=== PATIENT | male | born 1980 | race Caucasian/White ===

== ENCOUNTER → 2020-03-03 09:24 | Outpatient (BNVA) | payer OTHER, SELFPAY | PROVIDERS: PCP Internal Medicine; Referring Provider Internal Medicine; Visit Provider Family Medicine Adult Medicine | DX: Z76.89 Persons encountering health services in other specified circumstances (principal) ==

== ENCOUNTER 2020-04-28 14:00 | Outpatient (REF) | payer OTHER, SELFPAY | END 2020-04-28 14:01 | disposition home or self-care (01) | LOC: HO.HMGCLDS 14:00 | PROVIDERS: PCP Internal Medicine; Visit Provider Internal Medicine | DX: Z20.828 Contact with and (suspected) exposure to other viral communicable diseases (principal) | CPT/HCPCS: C9803; U0003 ==

== ENCOUNTER → 2020-08-13 11:00 | Outpatient (BNVA) | payer OTHER, SELFPAY | PROVIDERS: PCP Internal Medicine; Visit Provider Family Medicine Adult Medicine ==

== ENCOUNTER 2020-08-19 17:48 | Emergency (ER) | payer OTHER, SELFPAY ==
--- NOTE | ~2020-08-19 | US_ITS ---
EXAMINATION: US SCROTUM CLINICAL INFORMATION: Right-sided pain.. COMPARISON: Scrotal ultrasound 07/18/2018 TECHNIQUE: A sonogram of the scrotum was performed assessing chávez-scale appearance and color Doppler flow. Spectral Doppler analysis of the arterial and venous flow were performed in the testes bilaterally. FINDINGS: RIGHT: Right testicle measures 3.6 x 1.6 x 2.3 cm, volume 6.8 mL. No focal testicular parenchymal lesions are visualized. Spectral Doppler analysis of the arterial and venous flow is normal in the right testis. Right epididymal head is normal in size. No right hydrocele or varicocele is seen. Right epididymal Doppler flow is normal. LEFT: Left testicle measures 3 x 1.7 x 2.5 cm, volume 6.5 mL. No focal testicular parenchymal lesions are visualized. Spectral Doppler analysis of the arterial and venous flow is normal in the left testis. Left epididymal head is normal in size. There is a small cyst in the head of the left epididymis. No left hydrocele. There is a small left-sided varicocele.. Left epididymal Doppler flow is normal. US/US scrotum IMPRESSION: 1. Normal ultrasound of the right and left testicle. No testicular torsion. 2. Small left-sided varicocele.
--- NOTE | ~2020-08-19 | US_ITS ---
EXAMINATION: US SCROTUM CLINICAL INFORMATION: Right-sided pain.. COMPARISON: Scrotal ultrasound 07/18/2018 TECHNIQUE: A sonogram of the scrotum was performed assessing chávez-scale appearance and color Doppler flow. Spectral Doppler analysis of the arterial and venous flow were performed in the testes bilaterally. FINDINGS: RIGHT: Right testicle measures 3.6 x 1.6 x 2.3 cm, volume 6.8 mL. No focal testicular parenchymal lesions are visualized. Spectral Doppler analysis of the arterial and venous flow is normal in the right testis. Right epididymal head is normal in size. No right hydrocele or varicocele is seen. Right epididymal Doppler flow is normal. LEFT: Left testicle measures 3 x 1.7 x 2.5 cm, volume 6.5 mL. No focal testicular parenchymal lesions are visualized. Spectral Doppler analysis of the arterial and venous flow is normal in the left testis. Left epididymal head is normal in size. There is a small cyst in the head of the left epididymis. No left hydrocele. There is a small left-sided varicocele.. Left epididymal Doppler flow is normal. US/US scrotum doppler IMPRESSION: 1. Normal ultrasound of the right and left testicle. No testicular torsion. 2. Small left-sided varicocele.
[2020-08-19 18:53] LABS: Basophils Percent Auto 0.4 % (0-2); Eosinophils Absolute Auto 0.2 X10*3/uL (0.0-0.4); Eosinophils Percent Auto 2.2 % (0-4); Hematocrit 45.7 % (42-52); Hemoglobin 15.7 g/dl (14.0-18.0); Imm Gran Abs Auto 0.02 X10*3/uL (0.00-0.03); Imm Gran Pct Auto 0.2 % (0.0-0.4); Lymphocytes Absolute Auto 2.8 X10*3/uL (1.2-4.9); Lymphocytes Percent Auto 30.8 % (20-40); MANUAL DIFF FLAG NO; Mean Corpuscular HGB Conc 34.4 g/dl (31.0-36.0); Mean Corpuscular Hemoglobin 29.8 pg (27.0-33.0); Mean Corpuscular Volume 86.7 fL (80-98); Mean Platelet Volume 9.2 fL (9.4-12.4); Monocytes Absolute Auto 0.6 X10*3/uL (0.1-1.2); Monocytes Percent Auto 6.5 % (2-11); Neutrophils Absolute Auto 5.4 X10*3/uL (2.0-8.3); Neutrophils Percent Auto 59.9 % (45-73); Platelet Count 210 X10*3/uL (160-400); Red Blood Count 5.27 X10*6/uL (4.60-5.80)
[2020-08-19 18:59] LABS: Prothrombin Time 11.8 SEC (10.8-13.0)
[2020-08-19 19:15] LABS: Alanine Aminotransferase 16 U/L (0-40); Albumin Level 4.4 g/dL (3.5-5.0); Alkaline Phosphatase 65 U/L (39-117); Anion Gap 14 (12-20); Aspartate Amino Transferase 18 U/L (5-37); Bilirubin Direct 0.2 mg/dL (0.0-0.5); Bilirubin Total 0.3 mg/dL (0.0-1.0); Blood Urea Nitrogen 12 mg/dL (9-16); Calcium 9.3 mg/dL (8.4-10.2); Carbon Dioxide 29 mmol/L (22-29); Chloride 102 mmol/L (96-108); Estimated Glomerular Filt Rate > 60; Glucose Random 94 mg/dL (60-115); Magnesium 2.3 mg/dL (1.6-2.6); Potassium 4.2 mmol/L (3.3-5.1); Sodium 141 mmol/L (135-145); Total Protein 7.1 g/dL (6.5-8.0)
[2020-08-19 19:20] VITALS: BP 123/82; PULSE 80; RESP 16; TEMP 36.8; O2SAT 98; BMI 30.1
--- NOTE | 2020-08-19 21:33 | ED_ITS ---
HPI - Male Genitourinary General Chief complaint: Urogenital-Male <BLAIR Ashton - Last Filed: 08/19/20 21:48> Stated complaint: Groin pain <BLAIR Ashton Last Filed: 08/19/20 21:48> Time Seen by Provider: 08/19/20 18:07 <BLAIR Ashton - Last Filed: 08/19/20 21:48> History of Present Illness HPI Narrative: Patient complains of right groin and testicle pain for many months getting worse and worse, he comes today as he wants to be checked, he has seen urology for this pain in the past but that was several years ago There is no acute change he has no burning on urination no fever no chills no vomiting no abdominal pain <BLAIR Ashton Last Filed: 08/19/20 21:48> Related Data Home medications: Home Medications Medication Instructions Recorded Confirmed tizanidine 4 mg tablet 4 mg PO BID 02/25/20 09/03/20 Previous Rx's Medication Instructions Recorded oxycodone-acetaminophen 5 mg-325 1 tab PO Q6H PRN #120 tab 03/12/ mg tablet buprenorphine HCl 75 mcg buccal 75 mcg BUCCAL Q12H 30 Days #60 ea 09/03/20 film ibuprofen 800 mg tablet 800 mg PO Q8H PRN 30 Days #90 tab 09/03/20 <BLAIR Ashton - Last Filed: 08/19/20 21:48> Allergies/Adverse reactions: Allergies Allergy/AdvReac Type Severity Reaction Status Date / Time tramadol [TRAMADOL] Allergy Unknown HEADACHE, Verified 09/03/20 12:16 NAUSEA, rash <BLAIR Ashton Last Filed: 08/19/20 21:48> Review of Systems Review of Systems: Right groin and right testicle pain Negatives are no fever no chills no dizziness no weakness no neck pain no chest pain no abdominal pain no dysuria no frequency of urination no incontinence no rash <BLAIR Ashton Last Filed: 08/19/20 21:48> Yes all other systems are reviewed and are negative <BLAIR Ashton Last Filed: 08/19/20 21:48> [facility] Past Medical History Source: nursing notes reviewed <BLAIR Ashton Last Filed: 08/19/20 21:48> Medical History: Medical History (Updated 09/03/20 @ 12:33 by Tru German DO) Orchalgia Renal stones Right lumbar radiculopathy S/P extracorporeal shock wave therapy <BLAIR Ashton - Last Filed: 08/19/20 21:48> Surgical History: Surgical History History of testicular surgery Previous back surgery <BLAIR Ashton - Last Filed: 08/19/20 21:48> Family History Family History: Family History (Updated 03/16/20 @ 09:21 by Maribel Hagen [facility]) Father Hypertension Mother Hypertension Diabetes Maternal Uncle Lung cancer <BLAIR Ashton - Last Filed: 08/19/20 21:48> Social History Social History: Social History Alcohol intake: never <BLAIR Ashton - Last Filed: 08/19/20 21:48> Physical Exam Vital Signs: Vital Signs: Last Vital Signs Temp 98.2 F 08/19/20 19:20 Pulse 80 08/19/20 19:20 Resp 16 08/19/20 19:20 BP 123/82 08/19/20 19:20 Pulse Ox 98 08/19/20 19:20 Body Mass Index 30.1 <BLAIR Ashton - Last Filed: 08/19/20 21:48> Vital Signs: Last Vital Signs Temp 98.2 F 08/19/20 19:20 Pulse 80 08/19/20 19:20 Resp 16 08/19/20 19:20 BP 123/82 08/19/20 19:20 Pulse Ox 98 08/19/20 19:20 Body Mass Index 30.1 <Rene Miller MD - Last Filed: 09/03/20 15:43> General appearance is no acute distress, cooperative The head is normocephalic atraumatic Neck is supple Chest no respiratory distress Abdomen is soft nontender Genital exam there is tenderness to the superior aspect of the right testicle, no swelling, no hernia mass was palpated, no femoral hernia was palpated, no lesions no rash no discharge Extremities full range of motion x4 Skin no rashes Neuro no focal deficits <BLAIR Ashton - Last Filed: 08/19/20 21:48> Course Course Course Narrative: Patient is a patient of pain management doctor monserrat and has narcotic pain medication at home for his back pain Patient with history of kidney stones shows some microscopic blood in the urine, no white cells 1+ epithelial no bacteria Microscopic hematuria is consistent with several prior urine samples, doubt urinary tract infection Patient has no symptoms of urinary tract infection and a GC chlamydia test is pending and ultrasound was normal no evidence of torsion hernia or epididymitis <BLAIR Ashton - Last Filed: 08/19/20 21:48> I have reviewed the chart <Rene Miller MD - Last Filed: 09/03/20 15:43> MDM - Male Genitourinary Lab Data Result diagrams: : 08/19/20 18:45 08/19/20 18:45 <BLAIR Ashton - Last Filed: 08/19/20 21:48> Labs: Lab Results 08/19/20 08/19/20 08/19/20 Range/Units 18:45 18:45 18:45 WBC 9.0 (4.8-10.8) X10*3/uL RBC 5.27 (4.60-5.80) X10*6/uL Hgb 15.7 (14.0-18.0) g/dl Hct 45.7 (42-52) % MCV 86.7 (80-98) fL MCH 29.8 (27.0-33.0) pg MCHC 34.4 (31.0-36.0) g/dl RDW 12.0 (11.0-16.0) % Plt Count 210 (160-400) X10*3/uL MPV 9.2 L (9.4-12.4) fL Immature Gran % (Auto) 0.2 (0.0-0.4) % Neut % (Auto) 59.9 (45-73) % Lymph % (Auto) 30.8 (20-40) % Throckmorton % (Auto) 6.5 (2-11) % Eos % (Auto) 2.2 (0-4) % Baso % (Auto) 0.4 (0-2) % Lymph # (Auto) 2.8 (1.2-4.9) X10*3/uL Throckmorton # (Auto) 0.6 (0.1-1.2) X10*3/uL Eos # (Auto) 0.2 (0.0-0.4) X10*3/uL Baso # (Auto) 0.0 (0.0-0.2) X10*3/uL Abs Immat Gran (auto) 0.02 (0.00-0.03) X10*3/uL Absolute Neuts (auto) 5.4 (2.0-8.3) X10*3/uL Absolute Nucleated RBC 0.000 (0.0-0.012) X10*3/uL Nucleated RBC % (auto) 0.0 (0.0-0.2) /100WBC PT 11.8 (10.8-13.0) SEC INR 1.0 (0.9-1.1) Sodium 141 (135-145) mmol/L Potassium 4.2 (3.3-5.1) mmol/L Chloride 102 (96-108) mmol/L Carbon Dioxide 29 (22-29) mmol/L Anion Gap 14 (12-20) BUN 12 (9-16) mg/dL Creatinine 1.03 (0.5-1.4) mg/dL Estim Creat Clear Calc TNP Estimated GFR > 60 Random Glucose 94 (60-115) mg/dL Calcium 9.3 (8.4-10.2) mg/dL Magnesium 2.3 (1.6-2.6) mg/dL Total Bilirubin 0.3 (0.0-1.0) mg/dL Direct Bilirubin 0.2 (0.0-0.5) mg/dL AST 18 (5-37) U/L ALT 16 (0-40) U/L Alkaline Phosphatase 65 (39-117) U/L Total Protein 7.1 (6.5-8.0) g/dL Albumin 4.4 (3.5-5.0) g/dL <BLAIR Ashton - Last Filed: 08/19/20 21:48> Lab Results 08/19/20 08/19/20 08/19/20 Range/Units 18:45 18:45 18:45 WBC 9.0 (4.8-10.8) X10*3/uL RBC 5.27 (4.60-5.80) X10*6/uL Hgb 15.7 (14.0-18.0) g/dl Hct 45.7 (42-52) % MCV 86.7 (80-98) fL MCH 29.8 (27.0-33.0) pg MCHC 34.4 (31.0-36.0) g/dl RDW 12.0 (11.0-16.0) % Plt Count 210 (160-400) X10*3/uL MPV 9.2 L (9.4-12.4) fL Immature Gran % (Auto) 0.2 (0.0-0.4) % Neut % (Auto) 59.9 (45-73) % Lymph % (Auto) 30.8 (20-40) % Throckmorton % (Auto) 6.5 (2-11) % Eos % (Auto) 2.2 (0-4) % Baso % (Auto) 0.4 (0-2) % Lymph # (Auto) 2.8 (1.2-4.9) X10*3/uL Throckmorton # (Auto) 0.6 (0.1-1.2) X10*3/uL Eos # (Auto) 0.2 (0.0-0.4) X10*3/uL Baso # (Auto) 0.0 (0.0-0.2) X10*3/uL Abs Immat Gran (auto) 0.02 (0.00-0.03) X10*3/uL Absolute Neuts (auto) 5.4 (2.0-8.3) X10*3/uL Absolute Nucleated RBC 0.000 (0.0-0.012) X10*3/uL Nucleated RBC % (auto) 0.0 (0.0-0.2) /100WBC PT 11.8 (10.8-13.0) SEC INR 1.0 (0.9-1.1) Sodium 141 (135-145) mmol/L Potassium 4.2 (3.3-5.1) mmol/L Chloride 102 (96-108) mmol/L Carbon Dioxide 29 (22-29) mmol/L Anion Gap 14 (12-20) BUN 12 (9-16) mg/dL Creatinine 1.03 (0.5-1.4) mg/dL Estim Creat Clear Calc TNP Estimated GFR > 60 Random Glucose 94 (60-115) mg/dL Calcium 9.3 (8.4-10.2) mg/dL Magnesium 2.3 (1.6-2.6) mg/dL Total Bilirubin 0.3 (0.0-1.0) mg/dL Direct Bilirubin 0.2 (0.0-0.5) mg/dL AST 18 (5-37) U/L ALT 16 (0-40) U/L Alkaline Phosphatase 65 (39-117) U/L Total Protein 7.1 (6.5-8.0) g/dL Albumin 4.4 (3.5-5.0) g/dL <Rene Miller MD - Last Filed: 09/03/20 15:43> Discharge Plan Discharge Clinical Impression: Groin pain <BLAIR Ashton - Last Filed: 08/19/20 21:48> Patient Disposition: Home, Self-Care <BLAIR Ashton - Last Filed: 08/19/20 21:48> Additional Instructions: Follow with urologist and surgeon for further evaluation Today ultrasound and urinalysis and physical exam did not reveal any emergent condition Follow with Dr. german for pain management for pain medication as needed, Return any concerns <BLAIR Ashton - Last Filed: 08/19/20 21:48> Prescriptions: No Action oxycodone-acetaminophen 5-325 mg tablet 1 tab PO Q6H PRN (Reason: pain) Qty: 120 RF: 0 tizanidine 4 mg tablet 4 mg PO BID RF: 0 Belbuca 75 mcg film 75 mcg buccal Q12H 30 Days Qty: 60 RF: 0 ibuprofen 800 mg tablet 800 mg PO Q8H PRN (Reason: pain) 30 Days Qty: 90 RF: 0 <BLAIR Ashton - Last Filed: 08/19/20 21:48> Referrals: Hayden Mckeon MD [Physician] - 2 days (Chronic right testicle and groin plain) Reilly Monterroso MD [Physician] - 2 days (Chronic groin pain) <BLAIR Ashton - Last Filed: 08/19/20 21:48> Interventions: ED Discharge Assessment Last Done: 08/19/20 22:36 <BLAIR Ashton - Last Filed: 08/19/20 21:48> Discharge Date/Time: 08/19/20 22:38 <BLAIR Ashton - Last Filed: 08/19/20 21:48>
== END 2020-08-19 22:38 | disposition home or self-care (01) ==
PROVIDERS: Physician Assistant Medical; Emergency Provider Emergency Medicine; PCP Internal Medicine
DX: N50.811 Right testicular pain (principal); R10.31 Right lower quadrant pain; R31.29 Other microscopic hematuria; G89.29 Other chronic pain; Z79.891 Long term (current) use of opiate analgesic; Z87.442 Personal history of urinary calculi
CPT/HCPCS: 36415; 76870; 80048; 80076; 83735; 85025; 85610; 93975; 99284

== ENCOUNTER → 2020-09-03 11:39 | Outpatient (BNVA) | payer OTHER, SELFPAY | PROVIDERS: PCP Internal Medicine; Visit Provider Family Medicine Adult Medicine ==

== ENCOUNTER 2021-06-27 09:41 | Emergency (ER) | payer OTHER, SELFPAY ==
[2021-06-27 09:47] VITALS: BP 146/100; PULSE 91; RESP 19; TEMP 36.6; O2SAT 98; BMI 31.3
[2021-06-27] MEDS: Acetaminophen 325 MG TABLET 650 MG PO (10:17)
[2021-06-27] MEDS: Silver Sulfadiazine 1 % Cream 20 GM TUBE 1 APPL TOPICAL (10:17)
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
== END 2021-06-27 10:50 | disposition home or self-care (01) ==
PROVIDERS: Emergency Provider Emergency Medicine; PCP Internal Medicine
DX: T22.20XA Burn of second degree of shoulder and upper limb, except wrist and hand, unspecified site, initial encounter (principal); T31.0 Burns involving less than 10% of body surface; T79.8XXA Other early complications of trauma, initial encounter; M79.601 Pain in right arm; X17.XXXA Contact with hot engines, machinery and tools, initial encounter; Y93.9 Activity, unspecified; Y92.9 Unspecified place or not applicable; Y99.9 Unspecified external cause status; Z79.899 Other long term (current) drug therapy
CPT/HCPCS: 99283

== ENCOUNTER 2021-12-26 23:25 | Emergency (ER) | payer BC, SELFPAY ==
[2021-12-26 23:29] VITALS: BP 148/87; PULSE 74; RESP 16; TEMP 36.7; O2SAT 98; BMI 29.5
--- NOTE | 2021-12-27 00:28 | ED.BACK ---
HPI - Back Pain/Injury General Chief Complaint: Back Pain/Injury Stated Complaint: fall at work, lower back pain Time Seen by Provider: 12/27/21 00:18 Source: patient Mode of arrival: ambulatory Limitations: no limitations History of Present Illness MD elicited complaint: back pain and back injury Pertinent past history: prior back pain and recent trauma Onset (ago): week(s) (12/02) Timing: progressively worsening Severity: moderate Similar Symptoms Previously: Yes Quality: sharp Location: lumbar spine Radiation: right upper leg Exacerbating factors: movement, walking and lifting Relieving factors: immobilization Context: while lifting Associated symptoms: denies other symptoms Treatments prior to arrival: NSAIDS and prescription analgesics Work related injury: Yes Related Data Home Medications Medication Instructions Recorded Confirmed tizanidine 4 mg tablet 4 mg PO BID 02/25/20 09/03/20 Previous Rx's Medication Instructions Recorded oxycodone-acetaminophen 5 mg-325 1 tab PO Q6H PRN pain #120 tabs 03/12/20 mg tablet buprenorphine HCl 75 mcg buccal 75 mcg buccal Q12H 30 days #60 ea 09/03/20 film (Belbuca) ibuprofen 800 mg tablet 800 mg PO Q8H PRN pain 30 days #90 09/03/20 tabs nabumetone 500 mg tablet 500 mg PO BID #10 tabs 06/27/21 silver sulfadiazine 1 % topical 1 appl topical BID #25 grams 06/27/21 cream (Silvadene) cyclobenzaprine 10 mg tablet 10 mg PO TID PRN muscle spasm #14 12/27/21 tabs lidocaine 4 % topical patch 1 patch topical DAILY PRN pain #10 12/27/21 ea prednisone 20 mg tablet 40 mg PO DAILY 4 days #8 tabs 12/27/21 Allergies Allergy/AdvReac Type Severity Reaction Status Date / Time tramadol [TRAMADOL] Allergy Unknown HEADACHE, Verified 09/03/20 12:16 NAUSEA, rash Review of Systems Review of Systems: Constitutional : No Weight loss, No Fever, No Chills, ENT/Mouth : No Hearing loss, No Ear Pain, No Nasal Congestion, No Sinus Pain, No Hoarseness, No sore throat, No Rhinorrhea, No Swallowing Difficulty Cardiovascular : No Chest Pain, No SOB Respiratory : No Cough, No Dyspnea Gastrointestinal : No Nausea, No Vomiting, No Diarrhea, No abdominal Pain, No Hematochezia, No Melena Genitourinary : No Dysuria, No Urinary Frequency, No Hematuria, No Urinary Incontinence, Musculoskeletal : positive back pain Skin : No Skin Lesions, No rash Neuro : No Weakness, No Numbness, No Paresthesias, no loss of bowel or bladder incontinence, no saddle anesthesia [facility] Past Medical History Attestation statement: The following information was validated with the patient. Medical History Orchalgia Renal stones Right lumbar radiculopathy S/P extracorporeal shock wave therapy Surgical History History of testicular surgery Previous back surgery Family History Family History (Updated 03/16/20 @ 09:21 by JOAN Miller) Father Hypertension Mother Hypertension Diabetes Maternal Uncle Lung cancer Social History Social History (Updated 12/27/21 @ 01:09 by Jessi Peters DO) Alcohol intake: never Patient Tobacco Use Status: Never used Tobacco Advance Directives: No Advance Directives Information Provided: Yes Physical Exam Vital Signs: Vital Signs: Last Vital Signs Temp 98.1 F 12/26/21 23:29 Pulse 74 12/26/21 23:29 Resp 16 12/26/21 23:29 BP 148/87 H 12/26/21 23:29 Pulse Ox 98 12/26/21 23:29 O2 Del Method 12/26/21 23:29 BMI result Body Mass Index 29.5 Appearance: Alert. Oriented X3. No acute distress. Eyes: Pupils equal, round and reactive to light. ENT: Pharynx normal. Neck: Normal inspection. Neck supple. CVS: Normal heart rate and rhythm. Pulses normal. Respiratory: No respiratory distress. Breath sounds normal. Abdomen: Soft and nontender. Back: ttp along right lower lumbar Skin: Skin warm and dry. Normal skin color. Normal skin turgor. Extremities: No lower extremity edema. Neuro: Oriented X 3. No motor deficit. No sensory deficit. L5 5/5 bilaterally, 2+ DTR in patella and achilles, SILT inner thigh, no clonus MDM - Back Pain/Injury MDM Narrative Medical decision making narrative: 41 yo male with hx of prior back pain fell at work underwent xrays at [facility] on 12/02 told he was okay but back still hurting has not seen PCP or tried steroids yet, no b/b incontinence, no saddle anesthesia - no CE symptoms. At this time will need steroids, flexeril, pain patches, referred to his [facility] at work and PCP, no red flags Discharge Plan Discharge Clinical Impression: Right lumbar radiculopathy Patient Disposition: Home, Self-Care Instructions: Lumbar Radiculopathy (ED), Back Pain (ED) Additional Instructions: return to ED for any worsening symptoms or concerns please see your doctor if this does not improve in 4 days or follow up with your occupational provider from work Prescriptions: New cyclobenzaprine 10 mg tablet 10 mg PO TID PRN (Reason: muscle spasm) Qty: 14 0RF lidocaine 4 % adhesive patch,medicated 1 patch topical DAILY PRN (Reason: pain) Qty: 10 0RF Rx Instructions: may leave on for up to 12 hrs prednisone 20 mg tablet 40 mg PO DAILY 4 Days Qty: 8 0RF No Action oxycodone-acetaminophen 5-325 mg tablet 1 tab PO Q6H PRN (Reason: pain) Qty: 120 0RF silver sulfadiazine [Silvadene] 1 % cream 1 appl topical BID Qty: 25 0RF Rx Instructions: apply a 1.5 mm thickness nabumetone 500 mg tablet 500 mg PO BID Qty: 10 0RF tizanidine 4 mg tablet 4 mg PO BID Belbuca 75 mcg film 75 mcg buccal Q12H 30 Days Qty: 60 0RF Rx Instructions: Patient will be submitting BELBUCA 1ST START PAIN CONTROL OK TOP DISPENSE BELBUCA ALONG WITH OXYCODONE ibuprofen 800 mg tablet 800 mg PO Q8H PRN (Reason: pain) 30 Days Qty: 90 0RF Stand Alone Forms: Work/School Release
[2021-12-27] MEDS: Ketorolac Tromethamine 60 MG/2 ML VIAL IM (01:02)
[2021-12-27] MEDS: predniSONE 20 MG TABLET 40 MG PO (01:02)
[2021-12-27] MEDS: Lidocaine 4 % Patch ADH..PATCH 1 PATCH TRANSDERMA (01:02)
[2021-12-27] MEDS: Famotidine 20 MG TABLET PO (01:03)
[2021-12-27] MEDS: Cyclobenzaprine HCl 10 MG TABLET PO (01:03)
== END 2021-12-27 01:17 | disposition home or self-care (01) ==
PROVIDERS: Emergency Provider Emergency Medicine; PCP Internal Medicine
DX: M54.16 Radiculopathy, lumbar region (principal); M54.50 Low back pain, unspecified; Z79.899 Other long term (current) drug therapy
CPT/HCPCS: 96372; 99283; 99284; J1885

== ENCOUNTER 2022-04-13 12:32 | Emergency (ER) | payer BC, SELFPAY ==
--- NOTE | ~2022-04-13 | CT_ITS ---
EXAMINATION: CT abdomen pelvis wo IV con CLINICAL INFORMATION: Hernia COMPARISON: Prior CT scan from 01/18/2020 TECHNIQUE: Multidetector volumetric imaging was performed from the superior aspect of the liver through the pubic symphysis , noncontrasted study. Sagittal and coronal reformatted images were obtained on the technologist's workstation. This CT examination was performed using dose optimization techniques as appropriate, variously including the following: *Automated exposure control *Adjustment of mA and/or kV according to patient size (this includes techniques or standardized protocols for targeted exams where dose is matched to indication/reason for exam; i.e. extremities or head) *Use of iterative reconstruction technique DLP: 623 mGy-cm FINDINGS: LOWER THORAX: Included lung bases are clear. HEPATOBILIARY: The liver, normal in size. No evidence of liver disease. GALLBLADDER: Gallbladder is unremarkable. SPLEEN: Homogeneous normal in size. PANCREAS: No focal mass or ductal dilatation. STOMACH AND GASTROINTESTINAL TRACT: Stomach is grossly unremarkable. There is no bowel distention or thickening. No CT evidence of appendicitis. ADRENALS: No adrenal nodules. KIDNEYS/URETERS: Redemonstration of heterogeneous matrix of the right kidney concerning for possible underlying renal disease or cyst or mass, as previously suggested this require follow-up imaging with ultrasound and/or contrast enhanced cross-sectional study CT scan or MRI. No kidney stone or hydronephrosis. Focal hypodense area in the left kidney not well visualized 1.6 cm unchanged either. Nonspecific attenuation. Perinephric fat remain clear. URINARY BLADDER: Partially decompressed. PELVIC VISCERA: Unremarkable PERITONEUM: No free air or fluid. LYMPH NODES: No lymphadenopathy. VASCULAR:Abdominal aorta normal in size, no aneurysm found. BONES, ABDOMINAL WALL AND SOFT TISSUES: No CT evidence of abdominal wall hernia. Skeletal structures are intact. CT/CT abdomen pelvis wo IV con IMPRESSION: 1. No CT evidence of abdominal wall hernia. 2. Redemonstration of heterogeneous matrix of the right kidney concerning for possible underlying renal disease cysts or mass, nonspecific 1.6 cm hypodense area in the left kidney unchanged, as previously suggested this require further investigation, follow-up imaging with ultrasound and/or contrast enhanced cross-sectional study CT scan or MRI. 3. No abdominal wall hernia found.
[2022-04-13 12:35] VITALS: BP 152/92; PULSE 112; RESP 18; TEMP 36.4; O2SAT 98; BMI 29.4
--- NOTE | 2022-04-13 12:39 | ED_ITS ---
HPI - Abdominal Pain General Chief Complaint: General Medical Stated Complaint: hernia Time Seen by Provider: 04/13/22 13:43 Related Data Previous Rx's Medication Instructions Recorded oxycodone 5 mg tablet 5 mg PO BID PRN pain #10 tabs 04/15/22 Allergies Allergy/AdvReac Type Severity Reaction Status Date / Time tramadol [TRAMADOL] Allergy Unknown HEADACHE, Verified 04/11/22 08:08 NAUSEA, rash PMFSH Past Medical History Medical History (Updated 04/13/22 @ 16:57 by Carey Whitney NP) Orchalgia Renal stones Right inguinal hernia Right lumbar radiculopathy S/P extracorporeal shock wave therapy Surgical History History of testicular surgery Previous back surgery Family History Family History Father Hypertension Mother Hypertension Diabetes Maternal Uncle Lung cancer Social History Social History Housing: Apartment Alcohol intake: never Patient Tobacco Use Status: Never used Tobacco Smoked in Last 30 Days: No e-Cigarette/Vaping Use: Never Used Second Hand Smoke Exposure: No Use of substances other than those prescribed or required for medical reasons: No Advance Directives: No service: No Current occupational status: employed Current occupational exposures/hazards: No Cognitive needs: No Hearing needs: No Vision needs: No Physical Exam ED Vital Signs: BMI result Body Mass Index 29.4 Course Reevaluation(s) Reevaluation #1: 41-year-old male came in today for right inguinal hernia with pain for over a month, patient claimed pain went down to the scrotum with increased pain, had vomiting x1. Patient was seen and evaluated last week at [facility] and was scheduled to see a surgeon next week. Patient was not examined in triage protecting patient has privacy. Time: 12:40 Medications Administered Discontinued Medications Generic Name Dose Route Start Last Admin Trade Name Freq PRN Reason Stop Dose Admin Acetaminophen 650 mg 04/13/22 14:56 04/13/22 15:07 Acetaminophen 325 Mg Tablet PO 04/13/22 14:57 650 mg ONCE ONE Administration Barium Sulfate 450 ml 04/13/22 15:41 04/13/22 15:41 Barium Sulfate Oral (Mckeon) 450 Ml Oral.Susp PO 04/13/22 15:42 450 ml ONCE ONE Administration Barium Sulfate 450 ml 04/13/22 15:41 04/13/22 15:42 Barium Sulfate Oral (Vanilla) 450 Ml Oral.Susp PO 04/13/22 15:42 450 ml ONCE ONE Administration Oxycodone HCl 5 mg 04/13/22 14:55 04/13/22 15:07 Oxycodone Hcl Immed Release 5 Mg Tablet PO 04/13/22 14:56 5 mg ONCE ONE Administration MDM - Abdominal Pain Lab Data Result diagrams: 04/13/22 12:49 04/13/22 12:49 Labs: Lab Results 04/13/22 04/13/22 04/13/22 Range/Units 12:49 12:49 12:49 WBC 8.9 (4.8-10.8) X10*3/uL RBC 5.62 (4.60-5.80) X10*6/uL Hgb 17.1 (14.0-18.0) g/dl Hct 48.6 (42.0-52.0) % MCV 86.5 (80.0-98.0) fL MCH 30.4 (27.0-33.0) pg MCHC 35.2 (31.0-36.0) g/dl RDW 11.9 (11.0-16.0) % Plt Count 241 (160-400) X10*3/uL MPV 9.6 (9.4-12.4) fL Immature Gran % (Auto) 0.3 (0.0-0.4) % Neut % (Auto) 67.7 (45-73) % Lymph % (Auto) 23.8 (20-40) % [place] % (Auto) 5.9 (2-11) % Eos % (Auto) 1.8 (0-4) % Baso % (Auto) 0.5 (0-2) % Lymph # (Auto) 2.1 (1.2-4.9) X10*3/uL [place] # (Auto) 0.5 (0.1-1.2) X10*3/uL Eos # (Auto) 0.2 (0.0-0.4) X10*3/uL Baso # (Auto) 0.0 (0.0-0.2) X10*3/uL Abs Immat Gran (auto) 0.03 (0.00-0.03) X10*3/uL Absolute Neuts (auto) 6.0 (2.0-8.3) x10*3/uL Absolute Nucleated RBC 0.000 (0.0-0.012) X10*3/uL Nucleated RBC % (auto) 0.0 (0.0-0.2) /100WBC Sodium 141 (135-145) mmol/L Potassium 4.1 (3.3-5.1) mmol/L Chloride 105 (96-108) mmol/L Carbon Dioxide 27 (22-29) mmol/L Anion Gap 13 (12-20) BUN 11 (9-16) mg/dL Creatinine 0.99 (0.5-1.4) mg/dL Estim Creat Clear Calc 114.7 Estimated GFR > 60 Random Glucose 125 H (60-115) mg/dL Lactic Acid 1.7 (0.5-2.0) mmol/L Calcium 9.8 (8.4-10.2) mg/dL Total Bilirubin 0.5 (0.0-1.0) mg/dL Direct Bilirubin 0.2 (0.0-0.5) mg/dL AST 32 D (5-37) U/L ALT 41 H (0-40) U/L Alkaline Phosphatase 69 (39-117) U/L Total Protein 7.2 (6.5-8.0) g/dL Albumin 4.4 (3.5-5.0) g/dL Lipase 14 (8-78) U/L Discharge Plan Discharge Clinical Impression: Right inguinal hernia Patient Disposition: Home, Self-Care Instructions: Inguinal Hernia (ED) Prescriptions: No Action oxycodone 5 mg tablet 5 mg PO BID PRN (Reason: pain) Qty: 10 0RF Rx Instructions: Partial Fill upon patient request. Referrals: Brittany Peña MD [Primary Care Provider] - Interventions: ED Discharge Assessment Last Done: 04/13/22 17:03 Discharge Date/Time: 04/13/22 17:06 Print Language: Burmese
[2022-04-13 12:58] LABS: MANUAL DIFF FLAG NO
[2022-04-13 13:04] LABS: Basophils Percent Auto 0.5 % (0-2); Eosinophils Absolute Auto 0.2 X10*3/uL (0.0-0.4); Eosinophils Percent Auto 1.8 % (0-4); Hematocrit 48.6 % (42.0-52.0); Hemoglobin 17.1 g/dl (14.0-18.0); Imm Gran Abs Auto 0.03 X10*3/uL (0.00-0.03); Imm Gran Pct Auto 0.3 % (0.0-0.4); Lymphocytes Absolute Auto 2.1 X10*3/uL (1.2-4.9); Lymphocytes Percent Auto 23.8 % (20-40); Mean Corpuscular HGB Conc 35.2 g/dl (31.0-36.0); Mean Corpuscular Hemoglobin 30.4 pg (27.0-33.0); Mean Corpuscular Volume 86.5 fL (80.0-98.0); Mean Platelet Volume 9.6 fL (9.4-12.4); Monocytes Absolute Auto 0.5 X10*3/uL (0.1-1.2); Monocytes Percent Auto 5.9 % (2-11); Neutrophils Percent Auto 67.7 % (45-73); Platelet Count 241 X10*3/uL (160-400); Red Blood Count 5.62 X10*6/uL (4.60-5.80); Red Cell Distribution Width 11.9 % (11.0-16.0); White Blood Count 8.9 X10*3/uL (4.8-10.8)
[2022-04-13 13:10] LABS: Lactic Acid 1.7 mmol/L (0.5-2.0)
[2022-04-13 13:16] LABS: Alanine Aminotransferase 41 U/L (0-40); Albumin Level 4.4 g/dL (3.5-5.0); Alkaline Phosphatase 69 U/L (39-117); Anion Gap 13 (12-20); Aspartate Amino Transferase 32 U/L (5-37); Bilirubin Direct 0.2 mg/dL (0.0-0.5); Bilirubin Total 0.5 mg/dL (0.0-1.0); Blood Urea Nitrogen 11 mg/dL (9-16); Calcium 9.8 mg/dL (8.4-10.2); Carbon Dioxide 27 mmol/L (22-29); Chloride 105 mmol/L (96-108); Creatinine Clr Calc Pharmacy 114.7; Estimated Glomerular Filt Rate > 60; Glucose Random 125 mg/dL (60-115); Lipase 14 U/L (8-78); Potassium 4.1 mmol/L (3.3-5.1); Sodium 141 mmol/L (135-145); Total Protein 7.2 g/dL (6.5-8.0)
--- NOTE | 2022-04-13 13:47 | ED_ITS ---
HPI - General Adult General Chief complaint: General Medical Stated complaint: hernia Time Seen by Provider: 04/13/22 13:43 Source: patient Mode of arrival: ambulatory Limitations: no limitations History of Present Illness HPI narrative: 41 yo M with a PMH URI, renal stones, right lumbar radiculopathy, and recently diagnosed (04/11) right inguinal hernia presents to the ED with worsening nausea and vomiting since diagnosis. He was prescribed PRN Oxycodone for relief of pain and has a follow up appointment with surgery on Monday. He states last vomiting was at 6 am and that he has been able to tolerate solids and liquids after vomiting. He describes his pain as aching and severe causing pain during urination worsening since last night. He denies any abdominal pain, constipation, diarrhea, blood stools, or trouble emptying his bladder. Onset (ago): hour(s) Location: pelvis Severity: moderate Severity scale (1-10): 6 Quality: aching Pain Consistency: constant Relieving factors: medication Exacerbating factors: movement Associated symptoms: denies other symptoms and nausea/vomiting Treatments prior to arrival: none Related Data Previous Rx's Medication Instructions Recorded oxycodone 5 mg tablet 5 mg PO BID PRN pain #10 tabs 04/11/22 Allergies Allergy/AdvReac Type Severity Reaction Status Date / Time tramadol [TRAMADOL] Allergy Unknown HEADACHE, Verified 04/11/22 08:08 NAUSEA, rash Review of Systems Review of Systems: Yes all other systems are reviewed and are negative Constitutional: Constitutional: Reports no additional constitutional complaints, Denies chills, Denies fever(s) and Denies headache(s) Eyes: Eyes: Reports no additional eye complaints and Denies change in vision ENT: Reports system reviewed and no additional complaints, except as documented and Denies headache(s) Cardiovascular: Cardiovascular: Reports no additional cardiovascular complaints, Denies chest pain and Denies dyspnea Respiratory: Respiratory: Reports no additional respiratory complaints and Denies dyspnea Gastrointestinal: Gastrointestinal: Reports no additional gastrointestinal complaints, Denies hematochezia, Denies change in bowel habits, Denies constipation, Denies diarrhea, Reports nausea and Reports vomiting Genitourinary: Genitourinary: Reports dysuria and Reports other (right groin/pubic pain) Musculoskeletal: Musculoskeletal: Reports no additional musculoskeletal complaints, Denies numbness and Denies tingling Integumentary/Breasts: Skin/Breast: Reports system reviewed and no additional complaints, except as docu Neurologic: Reports system reviewed and no additional complaints, except as documented, Denies headache(s), Denies numbness and Denies tingling Psychiatric: Psychiatric: Reports no additional psychiatric complaints PMFSH Past Medical History Attestation statement: The following information was validated with the patient. Source: old records reviewed Medical History (Updated 04/13/22 @ 16:57 by Carey Whitney NP) Orchalgia Renal stones Right inguinal hernia Right lumbar radiculopathy S/P extracorporeal shock wave therapy Surgical History History of testicular surgery Previous back surgery Family History Family History Father Hypertension Mother Hypertension Diabetes Maternal Uncle Lung cancer Social History Social History Housing: Apartment Alcohol intake: never Patient Tobacco Use Status: Never used Tobacco Smoked in Last 30 Days: No e-Cigarette/Vaping Use: Never Used Second Hand Smoke Exposure: No Use of substances other than those prescribed or required for medical reasons: No Advance Directives: No service: No Current occupational status: employed Current occupational exposures/hazards: No Cognitive needs: No Hearing needs: No Vision needs: No Physical Exam ED Vital Signs: Vital Signs - 24 hr 04/13/22 12:35 04/13/22 14:19 04/13/22 16:00 Temperature 97.5 F 98.4 F 97.7 F Pulse Rate 112 H 82 72 Respiratory Rate 18 12 16 Blood Pressure 152/92 H 130/88 135/81 Pulse Oximetry 98 96 96 Oxygen Delivery Method Room Air Room Air Room Air BMI result Body Mass Index 29.4 Const General: cooperative, no acute distress, alert and awake Nutritional Appearance: well nourished Orientation/consciousness: patient oriented x3 Limitations: no limitations HENMT Head: Yes normal to inspection and Yes atraumatic Ears: hearing grossly normal bilaterally and external ears normal General nose exam: Normal external nose present Face and sinus: Yes normal facial exam Mouth: Normal oral and palatal mucosa present Eyes General: appearance normal, both eyes and all related structures Alignment and Position: alignment normal Periorbital: periorbital findings normal Eyelids: Yes eyelids normal Conjunctivae: conjunctivae normal Sclerae: sclerae normal Pupils: Equal, round and reactive pupils present EOM: EOMs intact bilaterally Neck Neck: Yes normal visual inspection and Yes full ROM Chest Chest palpation & inspection: normal inspection of the chest Resp Effort & Inspection: normal respiratory effort and able to speak in complete sentences Auscultation: clear to auscultation bilaterally Cardio Rate: regular rate Rhythm: regular rhythm GI Inspection: Yes normal to inspection Palpation (GI): Soft to palpation, not firm, nontender, no guarding and not rigid Auscultation: normal bowel sounds Male General Exam: Yes hernia Skin General skin exam: no rashes or lesions noted Neuro General: patient oriented x3 Cranial nerves: Yes Equal, round and reactive pupils present Cognition (Neuro): normal cognition Gait exam (Neuro): Normal gait present Motor exam (neuro): 5/5 motor strength present throughout Sensory Exam: Normal double simultaneous stimulation for sensation Extrem General: Yes normal to inspection, Yes full ROM and Yes capillary refill normal Psych Appearance: grossly normal Mental Status: mental status grossly normal Speech and movement: Normal speech and movement present Affect: normal affect Attitude: cooperative Thought process: Normal thought process present Thought content: Normal thought content present Insight: Good insight present (Psych) Judgement: Good judgement present (Psych) Medications Administered Discontinued Medications Generic Name Dose Route Start Last Admin Trade Name Tara PRN Reason Stop Dose Admin Acetaminophen 650 mg 04/13/22 14:56 04/13/22 15:07 Acetaminophen 325 Mg Tablet PO 04/13/22 14:57 650 mg ONCE ONE Administration Barium Sulfate 450 ml 04/13/22 15:41 04/13/22 15:41 Barium Sulfate Oral (Mckeon) 450 Ml Oral.Susp PO 04/13/22 15:42 450 ml ONCE ONE Administration Barium Sulfate 450 ml 04/13/22 15:41 04/13/22 15:42 Barium Sulfate Oral (Vanilla) 450 Ml Oral.Susp PO 04/13/22 15:42 450 ml ONCE ONE Administration Oxycodone HCl 5 mg 04/13/22 14:55 04/13/22 15:07 Oxycodone Hcl Immed Release 5 Mg Tablet PO 04/13/22 14:56 5 mg ONCE ONE Administration Medical Decision Making MDM Narrative Medical decision making narrative: 41 yo M with c/o worsening right groin pain after diagnosis of inguinal hernia. Lab work unremarkable. CT pelvis unremarkable to worsening hernia. CT pelvis reveals possible underlying renal disease. I explained my physical exam findings as well as all test results to the patient with no unanswered questions. Pt educated to follow up with his PCP regarding CT results. Pt received Oxycodone and Tylenol for acute pain with good relief of symptoms. Pt educated to follow up with surgical team regarding symptoms. Pt educated to return to the e mergency department immediately if symptoms were to worsen or if he were to develop any dizziness, shortness of breath, difficulty breathing, chest pain, blurry vision, loss of vision, nausea, vomiting, abdominal pain, fever, chills, back pain, or any other complaints. Patient verbalized agreement and understanding with this treatment plan and discharged. Lab Data Lab results reviewed: Yes I reviewed the patient's lab results. Result diagrams: 04/13/22 12:49 04/13/22 12:49 Labs: Lab Results 04/13/22 04/13/22 04/13/22 Range/Units 12:49 12:49 12:49 WBC 8.9 (4.8-10.8) X10*3/uL RBC 5.62 (4.60-5.80) X10*6/uL Hgb 17.1 (14.0-18.0) g/dl Hct 48.6 (42.0-52.0) % MCV 86.5 (80.0-98.0) fL MCH 30.4 (27.0-33.0) pg MCHC 35.2 (31.0-36.0) g/dl RDW 11.9 (11.0-16.0) % Plt Count 241 (160-400) X10*3/uL MPV 9.6 (9.4-12.4) fL Immature Gran % (Auto) 0.3 (0.0-0.4) % Neut % (Auto) 67.7 (45-73) % Lymph % (Auto) 23.8 (20-40) % [place] % (Auto) 5.9 (2-11) % Eos % (Auto) 1.8 (0-4) % Baso % (Auto) 0.5 (0-2) % Lymph # (Auto) 2.1 (1.2-4.9) X10*3/uL [place] # (Auto) 0.5 (0.1-1.2) X10*3/uL Eos # (Auto) 0.2 (0.0-0.4) X10*3/uL Baso # (Auto) 0.0 (0.0-0.2) X10*3/uL Abs Immat Gran (auto) 0.03 (0.00-0.03) X10*3/uL Absolute Neuts (auto) 6.0 (2.0-8.3) x10*3/uL Absolute Nucleated RBC 0.000 (0.0-0.012) X10*3/uL Nucleated RBC % (auto) 0.0 (0.0-0.2) /100WBC Sodium 141 (135-145) mmol/L Potassium 4.1 (3.3-5.1) mmol/L Chloride 105 (96-108) mmol/L Carbon Dioxide 27 (22-29) mmol/L Anion Gap 13 (12-20) BUN 11 (9-16) mg/dL Creatinine 0.99 (0.5-1.4) mg/dL Estim Creat Clear Calc 114.7 Estimated GFR > 60 Random Glucose 125 H (60-115) mg/dL Lactic Acid 1.7 (0.5-2.0) mmol/L Calcium 9.8 (8.4-10.2) mg/dL Total Bilirubin 0.5 (0.0-1.0) mg/dL Direct Bilirubin 0.2 (0.0-0.5) mg/dL AST 32 D (5-37) U/L ALT 41 H (0-40) U/L Alkaline Phosphatase 69 (39-117) U/L Total Protein 7.2 (6.5-8.0) g/dL Albumin 4.4 (3.5-5.0) g/dL Lipase 14 (8-78) U/L Imaging Data CT scan - pelvis: Attestation: I personally reviewed and interpreted this imaging study as follows: My impression: No acute abdominal findings Radiologist's impression: FINDINGS: LOWER THORAX: Included lung bases are clear. HEPATOBILIARY: The liver, normal in size. No evidence of liver disease. GALLBLADDER: Gallbladder is unremarkable. SPLEEN: Homogeneous normal in size. PANCREAS: No focal mass or ductal dilatation. STOMACH AND GASTROINTESTINAL TRACT: Stomach is grossly unremarkable. There is no bowel distention or thickening. No CT evidence of appendicitis. ADRENALS: No adrenal nodules. KIDNEYS/URETERS: Redemonstration of heterogeneous matrix of the right kidney concerning for possible underlying renal disease or cyst or mass, as previously suggested this require follow-up imaging with ultrasound and/or contrast enhanced cross-sectional study CT scan or MRI. No kidney stone or hydronephrosis. Focal hypodense area in the left kidney not well visualized 1.6 cm unchanged either. Nonspecific attenuation. Perinephric fat remain clear. URINARY BLADDER: Partially decompressed. PELVIC VISCERA: Unremarkable PERITONEUM: No free air or fluid. LYMPH NODES: No lymphadenopathy. VASCULAR:Abdominal aorta normal in size, no aneurysm found. BONES, ABDOMINAL WALL AND SOFT TISSUES: No CT evidence of abdominal wall hernia. Skeletal structures are intact. CT/CT abdomen pelvis wo IV con IMPRESSION: 1.? No CT evidence of abdominal wall hernia. 2.? Redemonstration of heterogeneous matrix of the right kidney concerning for possible underlying renal disease cysts or mass, nonspecific 1.6 cm hypodense area in the left kidney unchanged, as previously suggested this require further investigation, follow-up imaging with ultrasound and/or contrast enhanced cross-sectional study CT scan or MRI. 3.? No abdominal wall hernia found. ? Dictated By: Kal Ordaz MD Signed By: <Electronically signed by Kal Ordaz MD in OV> 04/13/22 1635 DD/ 1543 TD/TT:? Explosives Handler: Discharge Plan Discharge Clinical Impression: Right inguinal hernia Patient Disposition: Home, Self-Care Instructions: Inguinal Hernia (ED) Prescriptions: No Action oxycodone 5 mg tablet 5 mg PO BID PRN (Reason: pain) Qty: 10 0RF Rx Instructions: Partial Fill upon patient request. Referrals: Brittany Peña MD [Primary Care Provider] - Interventions: ED Discharge Assessment Last Done: 04/13/22 17:03 Discharge Date/Time: 04/13/22 17:06 Print Language: Maltese
[2022-04-13 14:19] VITALS: BP 130/88; PULSE 82; RESP 12; TEMP 36.9; O2SAT 96
[2022-04-13] MEDS: Acetaminophen 325 MG TABLET 650 MG PO (15:07)
[2022-04-13] MEDS: oxyCODONE HCl Immed Release 5 MG TABLET PO (15:07)
[2022-04-13] MEDS: Barium Sulfate Oral (Berry) 450 ML ORAL.SUSP PO (15:41)
[2022-04-13] MEDS: Barium Sulfate Oral (Vanilla) 450 ML ORAL.SUSP PO (15:42)
[2022-04-13 16:00] VITALS: BP 135/81; PULSE 72; RESP 16; TEMP 36.5; O2SAT 96
== END 2022-04-13 17:06 | disposition home or self-care (01) ==
PROVIDERS: Emergency Medicine; Emergency Provider Emergency Medicine Emergency Medical Services; PCP Internal Medicine
DX: K40.90 Unilateral inguinal hernia, without obstruction or gangrene, not specified as recurrent (principal)
CPT/HCPCS: 36415; 74176; 80048; 80076; 83605; 83690; 85025; 99284

== ENCOUNTER 2022-05-04 08:58 | Outpatient (REF) | payer BC, SELFPAY ==
--- NOTE | ~2022-05-04 | CT_ITS ---
EXAMINATION: CT ABDOMEN AND PELVIS WITHOUT CONTRAST CLINICAL INFORMATION: Unilateral inguinal hernia. COMPARISON: CT abdomen and pelvis 01/18/2020 TECHNIQUE: Multidetector volumetric imaging was performed from the superior aspect of the liver through the pubic symphysis. Sagittal and coronal reformatted images were obtained on the technologist's workstation. This CT examination was performed using dose optimization techniques as appropriate, variously including the following: *Automated exposure control *Adjustment of mA and/or kV according to patient size (this includes techniques or standardized protocols for targeted exams where dose is matched to indication/reason for exam; i.e. extremities or head) *Use of iterative reconstruction technique DLP: 597 mGy-cm FINDINGS: LUNG BASES: The visualized lung bases are unremarkable. LIVER, GALLBLADDER, AND BILIARY TREE: The liver is normal in size, shape, and attenuation. No focal hepatic lesion or biliary ductal dilatation is present. The gallbladder is unremarkable with no evidence of radiopaque gallstones, gallbladder wall thickening, or obvious pericholecystic inflammatory changes. PANCREAS: Unremarkable. SPLEEN: Unremarkable. ADRENAL GLANDS: Unremarkable. KIDNEYS AND URETERS: The right kidney is slightly heterogeneous in the upper pole similar to previous exam 01/18/2020 and 11/25/2019. There is a punctate calcification in the midpole right kidney. The left kidney is unremarkable. The right kidney measures 12.11 cm in length and left kidney measures 10.7 cm in length. BLADDER: Unremarkable. GASTROINTESTINAL TRACT: There is scattered stool stool and gas seen throughout the colon without significant distention. Oral contrast opacified small bowel loops are normal caliber. Appendix is normal caliber. No inflammatory process seen in the abdomen. ABDOMINAL WALL: No significant hernia is appreciated. LYMPH NODES: Normal. VASCULAR: Unremarkable. PELVIC VISCERA: Unremarkable. OSSEOUS STRUCTURES: There is L4-L5 disc fusion with prosthesis in place. No aggressive lytic or sclerotic process seen. CT/CT abdomen pelvis wo IV con IMPRESSION: 1. Enlarged right kidney with heterogeneous appearance of the upper pole right kidney, stable to last 2 CT exams and as far back as 01/11/2013 exam. This could be from underlying small cysts with intervening normal renal tissue or developmental anomaly. 2. Punctate calcification upper midpole right kidney. 3. Mild constipation. Fleischner guidelines were followed.
[2022-05-04] MEDS: Barium Sulfate Oral (Berry) 450 ML ORAL.SUSP 900 ML PO (11:37)
== END 2022-05-04 08:59 | disposition home or self-care (01) ==
LOC: HO.CT 08:58
PROVIDERS: PCP Internal Medicine; Visit Provider Nurse Practitioner Family
DX: K40.90 Unilateral inguinal hernia, without obstruction or gangrene, not specified as recurrent (principal)
CPT/HCPCS: 74176

== ENCOUNTER 2022-10-12 14:31 | Emergency (ER) | payer OTHER, SELFPAY ==
--- NOTE | ~2022-10-12 | XR_ITS ---
EXAMINATION: LUMBOSACRAL SPINE AND SACRUM AND COCCYX CLINICAL INFORMATION: Pain after fall COMPARISON: CT abdomen pelvis 05/04/2022 TECHNIQUE: 2 views lumbosacral spine, 3 views sacrum and coccyx FINDINGS: There is fusion at L5-S1 with a disc spacer present. Remainder of the disc spaces are well preserved. There is mild anterior compression deformity of T12, unchanged from prior. The sacrum and coccyx appear unremarkable. No bony destructive lesions or fractures are seen. XR/XR sacrum coccyx min 2V IMPRESSION: No evidence of an acute injury. Chronic findings as described above.
--- NOTE | ~2022-10-12 | XR_ITS ---
EXAMINATION: LUMBOSACRAL SPINE AND SACRUM AND COCCYX CLINICAL INFORMATION: Pain after fall COMPARISON: CT abdomen pelvis 05/04/2022 TECHNIQUE: 2 views lumbosacral spine, 3 views sacrum and coccyx FINDINGS: There is fusion at L5-S1 with a disc spacer present. Remainder of the disc spaces are well preserved. There is mild anterior compression deformity of T12, unchanged from prior. The sacrum and coccyx appear unremarkable. No bony destructive lesions or fractures are seen. XR/XR lumbar spine 2-3V IMPRESSION: No evidence of an acute injury. Chronic findings as described above.
[2022-10-12 15:27] VITALS: BP 147/86; PULSE 93; RESP 18; TEMP 36.4; O2SAT 97; BMI 28.6
--- NOTE | 2022-10-12 15:27 | ED_ITS ---
HPI - Fall General Chief Complaint: Fall <BLAIR White Last Filed: 10/12/22 15:31> Stated Complaint: back pain? <BLAIR White - Last Filed: 10/12/22 15:31> Time Seen by Provider: 10/12/22 15:46 <BLAIR White Last Filed: 10/12/22 15:31> Source: patient <Soham Fernandez - Last Filed: 10/12/22 16:31> Limitations: no limitations <Soham Fernandez - Last Filed: 10/12/22 16:31> History of Present Illness HPI Narrative: 42-year-old male status post slipping on his own stairs falling onto his buttocks pain in her lumbar spine lower back extending into the right buttocks. Patient denies loss of bowel movements urine incontinence. Patient denies hitting his head or passing out. Pain is 7/10. Patient has had a procedure to his back anterior approach few years back by Dr. Astorga or S1 was repaired. Symptoms are [id number] pain is increases with palpation. <Soham Fernandez - Last Filed: 10/12/22 16:31> Related Data Home Medications: Previous Rx's Medication Instructions Recorded cyclobenzaprine 5 mg tablet 5 mg PO TID PRN muscle spasm #30 05/19/22 tabs oxycodone 5 mg tablet 5 mg PO BID PRN pain #7 tabs 10/12/22 <BLAIR White Last Filed: 10/12/22 15:31> Allergies/Adverse Reactions: Allergies Allergy/AdvReac Type Severity Reaction Status Date / Time naproxen Allergy Mild Hives Verified 10/12/22 15:30 tramadol [TRAMADOL] Allergy Unknown HEADACHE, Verified 10/12/22 15:30 NAUSEA, rash <BLAIR White Last Filed: 10/12/22 15:31> Review of Systems Review of Systems: General: No fever, no chills Ophthalmology: No vision changes, no discharge ENT: No sore throat, no ear pain Muscle skeletal: Right-sided to mid lower back pain. GI: No abdominal pain: no nausea vomiting, no diarrhea : No dysuria, no urgency, no frequency Skin: No rash <Soham Fernandez - Last Filed: 10/12/22 16:31> [facility] Past Medical History Medical History: Medical History Orchalgia Renal stones Right lumbar radiculopathy S/P extracorporeal shock wave therapy <BLAIR White - Last Filed: 10/12/22 15:31> Surgical History: Surgical History History of testicular surgery Previous back surgery <BLAIR White - Last Filed: 10/12/22 15:31> Family History Family History: Family History Father Hypertension Mother Hypertension Diabetes Maternal Uncle Lung cancer <BLAIR White - Last Filed: 10/12/22 15:31> Social History Social History: Social History Housing: Apartment Alcohol intake: never Patient Tobacco Use Status: Never used Tobacco e-Cigarette/Vaping Use: Never Used Second Hand Smoke Exposure: No Advance Directives: No Advance Directives Information Provided: No service: No Current occupational status: employed Current occupational exposures/hazards: No Cognitive needs: No Hearing needs: No Vision needs: No <BLAIR White - Last Filed: 10/12/22 15:31> Physical Exam Vital Signs: Vital Signs: Last Vital Signs Temp 97.6 F 10/12/22 15:27 Pulse 93 10/12/22 15:27 Resp 18 10/12/22 15:27 BP 147/86 H 10/12/22 15:27 Pulse Ox 97 10/12/22 15:27 O2 Del Method Room Air 10/12/22 15:27 BMI result Body Mass Index 28.6 <BLAIR White - Last Filed: 10/12/22 15:31> Vital Signs: Last Vital Signs Temp 97.6 F 10/12/22 15:27 Pulse 93 10/12/22 15:27 Resp 18 10/12/22 15:27 BP 147/86 H 10/12/22 15:27 Pulse Ox 97 10/12/22 15:27 O2 Del Method Room Air 10/12/22 15:27 BMI result Body Mass Index 28.6 <Soham Fernandez - Last Filed: 10/12/22 16:31> General appearance: Awake, alert, cooperative, in no acute distress Skin: Warm, dry, no rash Eyes: PERRL, EOMI, no icterus ENT: Oropharynx normal, uvula midline Neck: Soft supple full range of motion Extremities: Positive paraspinal muscle tenderness of the lumbar spine right greater than left some slight midline tenderness extending distally to the sacrum Neuro: Alert oriented x3, no focal deficit Psych: Normal affect <Soham Fernandez - Last Filed: 10/12/22 16:31> Course Course Course Narrative: RME 42 yo male here for right low back/buttocks pain on the right side going down the leg who fell down the stairs this morning, and did not strike his head. He has not taken any pain medication, has no blood in his urine, and is not on blood thinners. Plan: lumbar spine/coccyx Xray <BLAIR White - Last Filed: 10/12/22 15:31> Medical Decision Making Medical Decision Making MDM Narrative: Coccyx contusion coccyx fracture LS spine compression fracture LS spine contusion [facility] reviewed last prescription was 2021 for oxycodone Symptoms seem secondary to fall LS spine and coccyx films are pending 16:30 Coccyx and LS spine negative for fracture Multiple allergies to medications will give short course of oxycodone p.o. at this time follow-up is needed with PCP <Soham Fernandez - Last Filed: 10/12/22 16:31> Radiology Impression Discussion of test interpretation with radiology: I have reviewed the radiologist's reading. <Soham Lockettens - Last Filed: 10/12/22 16:31> Radiologist Impression: [address] [place], [place] [id number] ReportSigned Patient: Car Hernandez RMR#: [id number]: 1980Acct:[id number]/Sex: 42 / MADM Date: 10/12/22Loc: Anil Tsang: Ordering Physician: Brooke Hernández Date of Service: 10/12/22 Procedure(s): XR lumbar spine 2-3V Accession Number(s): [id number] cc: Brooke Hernández~ EXAMINATION: LUMBOSACRAL SPINE AND SACRUM AND COCCYX CLINICAL INFORMATION: Pain after fall COMPARISON: CT abdomen pelvis 05/04/2022 TECHNIQUE: 2 views lumbosacral spine, 3 views sacrum and coccyx FINDINGS: There is fusion at L5-S1 with a disc spacer present. Remainder of the disc spaces are well preserved. There is mild anterior compression deformity of T12, unchanged from prior. The sacrum and coccyx appear unremarkable. No bony destructive lesions or fractures are seen. XR/XR lumbar spine 2-3V IMPRESSION: No evidence of an acute injury. Chronic findings as described above. Dictated By:Rene Hernadez MDSigned By:<Electronically signed by Rene Hernadez MD in [place]>10/12/221611 DD/ 1539TD/TT: Blasting Helper: [address] [id number] ReportSigned Patient: Car Hernandez RMR#: [id number]: [id number]:[id number]/Sex: 42 / MADM Date: 10/12/22Loc: EDAttpedro luis Dr: Ordering Physician: Brooke Hernández Date of Service: 10/12/22 Procedure(s): XR sacrum coccyx min 2V Accession Number(s): [id number] cc: Brooke Hernández~ EXAMINATION: LUMBOSACRAL SPINE AND SACRUM AND COCCYX CLINICAL INFORMATION: Pain after fall COMPARISON: CT abdomen pelvis 05/04/2022 TECHNIQUE: 2 views lumbosacral spine, 3 views sacrum and coccyx FINDINGS: There is fusion at L5-S1 with a disc spacer present. Remainder of the disc spaces are well preserved. There is mild anterior compression deformity of T12, unchanged from prior. The sacrum and coccyx appear unremarkable. No bony destructive lesions or fractures are seen. XR/XR sacrum coccyx min 2V IMPRESSION: No evidence of an acute injury. Chronic findings as described above. Dictated By:Rene Hernadez MDSigned By:<Electronically signed by Rene Hernadez MD in OV>10/12/221611 DD/ 1539TD/TT: Blasting Helper: ADALBERTO <Soham Fernandez - Last Filed: 10/12/22 16:31> Discharge Plan Discharge Clinical Impression: Coccyx pain, Lumbar contusion <BLAIR White - Last Filed: 10/12/22 15:31> Patient Disposition: Home, Self-Care <BLAIR White - Last Filed: 10/12/22 15:31> Instructions: Acute Low Back Pain (ED), Contusion in Adults (ED) <BLAIR White - Last Filed: 10/12/22 15:31> Additional Instructions: X-rays taken today showed no acute findings Chronic conditions from the prior surgery Follow-up with PCP <BLAIR White - Last Filed: 10/12/22 15:31> Prescriptions: New oxycodone 5 mg tablet 5 mg PO BID PRN (Reason: pain) Qty: 7 0RF Rx Instructions: Partial Fill upon patient request. No Action cyclobenzaprine 5 mg tablet 5 mg PO TID PRN (Reason: muscle spasm) Qty: 30 0RF <BLAIR White - Last Filed: 10/12/22 15:31>
--- NOTE | 2022-10-12 15:35 | PC.NURSE ---
pt in xray at this time, fully ambulatory, slow, balanced gait noted
== END 2022-10-12 16:36 | disposition home or self-care (01) ==
PROVIDERS: Emergency Provider Emergency Medicine; PCP Internal Medicine
DX: S30.0XXA Contusion of lower back and pelvis, initial encounter (principal); S39.92XA Unspecified injury of lower back, initial encounter; W10.9XXA Fall (on) (from) unspecified stairs and steps, initial encounter; Y93.9 Activity, unspecified; Y92.9 Unspecified place or not applicable; Y99.9 Unspecified external cause status; Z79.899 Other long term (current) drug therapy
CPT/HCPCS: 72100; 72220; 99282; 99283

== ENCOUNTER 2023-02-06 10:43 | Outpatient (AMB) | payer OTHER, SELFPAY ==
[2023-02-06 11:14] VITALS: BP 130/82; PULSE 88; TEMP 36.3; O2SAT 98; BMI 28.3
--- NOTE | 2023-02-06 11:14 | MHC.OFFWIV ---
Intake Vital Signs 02/06/23 11:14 Height 5 ft 11 in Weight 203 lb BMI 28.3 BP 130/82 Blood Pressure Location Rt brachial Position Sitting Pulse 88 Pulse Source Pulse Oximeter Temp 97.3 F Temp Source Temporal Artery Scan Pulse Oximetry (%) 98 Oxygen Delivery Method Room Air Intake Visit Reasons: EST/WC broken finger left hand Intake Note: pt is here for possible broken finger on left hand Patient Tobacco Use Status: Never used Tobacco Allergies naproxen Allergy (Mild, Verified 02/06/23 11:14) Hives tramadol [TRAMADOL] Allergy (Unknown, Verified 02/06/23 11:14) HEADACHE, NAUSEA, rash Do you need a note to return 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 sustained a left 4th finger nondisplaced fracture, and laceration at distal end of finger after slicing it on a copper pipe while using a saw at work. laceration was stitched, and these are due to be removed in another 6 days. Patient has had significant pain and swelling of left hand since injury. He has completed his 3 day course of antibiotics [facility] He also received cefazolin IV and a tetanus shot in the ER. he reports he has been trying to ice and elevate hand, and has been keeping splint on finger as much as possible. He denies any fever or chills. Denies any drainage from laceration. [facility] Medical History Right lumbar radiculopathy S/P extracorporeal shock wave therapy Renal stones Orchalgia Surgical History History of testicular surgery Previous back surgery Family History Father Hypertension Mother Hypertension Diabetes Maternal Uncle Lung cancer Social History Housing: Apartment Alcohol intake: never Patient Tobacco Use Status: Never used Tobacco e-Cigarette/Vaping Use: Never Used Second Hand Smoke Exposure: No service: No Current occupational status: employed Current occupational exposures/hazards: No Cognitive needs: No Hearing needs: No Vision needs: No Review of Systems Const All systems reviewed & are unremarkable except as noted in HPI and below Physical Exam Vital Signs: Last Vital Signs Temp 97.3 F 02/06/23 11:14 Pulse 88 02/06/23 11:14 BP 130/82 02/06/23 11:14 Pulse Ox 98 02/06/23 11:14 Oxygen Delivery Method Room Air 02/06/23 11:14 BMI result Body Mass Index 28.3 Const General: cooperative and in distress (pain) mild Nutritional Appearance: average body habitus Resp Effort & Inspection: normal respiratory effort and able to speak in complete sentences Auscultation: clear to auscultation bilaterally Cardio Jugular venous distension: no JVD Palpation: normal PMI Rate: regular rate Rhythm: regular rhythm Skin Other: Well-healing laceration distal aspect of left 4th finger, sutures intact, well-approximated, no drainage. mild warmth and erythema in left hand to me and lower arm. General skin exam: no rashes or lesions noted and elasticity normal Extrem General: Yes capillary refill normal Psych Appearance: grossly normal Mental Status: mental status grossly normal Speech and movement: Normal speech and movement present Assessment & Plan Assessment & Plan (1) Cellulitis of left hand: Code(s): L03.114 - Cellulitis of left upper limb Plan: I am starting patient on a new course of antibiotics given evidence of cellulitis of left hand/lower arm following injury 4 days ago. The laceration and sutures appear stable, and these are due to come out in 6 days. I encouraged patient to keep splint on due to fracture, into ice/elevate when able to. I also advised him to contact orthopedic office to which he was [facility]. If he develops any increasing pain, fever, chills, increasing redness/pain/ swelling of the arm, he should return to the clinic or see PCP, or return to the ED for further evaluation. Patient is in significant pain upon exam. I had initially planned to order a short short course of pain medication for this, however upon ordering this it appeared he was prescribed 20 oxycodone two days ago by another provider at a different office. He did not disclose this during visit. I called patient to help clarify this, and patient did not answer phone. He was later contacted by RN in office and patient informed her he had 10 of these left. He was advised that additional narcotics would not be ordered at this time and to utilize pain medication initially prescribed. (2) Fracture of finger, left: Code(s): S62.609A - Fracture of unspecified phalanx of unspecified finger, initial encounter for closed fracture Qualifiers: Finger: ring finger Fracture alignment: nondisplaced Fracture type: closed Medications: New doxycycline hyclate 100 mg PO BID 7 days 14 tabs 0RF L03.114 - Cellulitis of left upper limb Coding Level of Care Code Est Pt Level 3 (30694) Diagnoses Cellulitis of left hand L03.114 Fracture of finger, left S62.609A Finger: ring finger Fracture alignment: nondisplaced Fracture type: closed
== END 2023-02-06 11:59 | disposition home or self-care (01) ==
PROVIDERS: PCP Internal Medicine; Visit Provider Nurse Practitioner Family
DX: L03.114 Cellulitis of left upper limb (principal); S62.609A Fracture of unspecified phalanx of unspecified finger, initial encounter for closed fracture
CPT/HCPCS: 99213

== ENCOUNTER 2023-02-07 10:55 | Outpatient (AMB) | payer OTHER, SELFPAY ==
[2023-02-07 11:02] VITALS: BP 138/76; PULSE 82; O2SAT 98; BMI 29.0
--- NOTE | 2023-02-07 11:02 | A.OFFPC_ITS ---
Vital Signs 3 02/07/23 11:02 Height 5 ft 11 in Weight 208 lb BMI 29.0 BP 138/76 Blood Pressure Location Lt brachial Position Sitting Pulse 82 Pulse Source Pulse Oximeter Pulse Oximetry (%) 98 Oxygen Delivery Method Room Air Intake Visit Reasons: ED f/u cellulitis right hand, pain Allergies naproxen Allergy (Mild, Verified 02/07/23 11:02) Hives tramadol [TRAMADOL] Allergy (Unknown, Verified 02/07/23 11:02) HEADACHE, NAUSEA, rash Medication List - Last Reconciled 02/07/23 by Brittany Peañ MD doxycycline hyclate 100 mg PO BID 7 days ibuprofen mg PO Tobacco use date assessed: 02/07/23 Dental Screening Dental Screen Date: 02/07/23 Did you have a dental visit in the last 12 months?: Yes Did you have a dental problem in the last 6 months where you did not have access to dental care?: No Was dental information given to patient?: Patient has dentist HPI ED f/u cellulitis right hand, pain 2 HPI0 Details 42-year-old overweight male with a histo ry of varicocele left renal calculi elevated liver function test with an elevated blood sugar last seen in April 2022 coming in for follow-up. Patient was requested to have blood work done. Review of the notes was in the Urgent Center yesterday for left finger fracture sustained 4 days ago January 2023 left 4th finger nondisplaced fracture and laceration distal and of the after manipulating copper pipe stitched and to be removed in 6 days patient was given an antibiotic in the ER. September 2022 ER visit also after falling x-rays of the lumbar spine and the sacroiliac were negative. [facility] Medical History Right lumbar radiculopathy S/P extracorporeal shock wave therapy Renal stones Orchalgia Surgical History History of testicular surgery Previous back surgery Family History Father Hypertension Mother Hypertension Diabetes Maternal Uncle Lung cancer Social History Housing: Apartment Alcohol intake: never Patient Tobacco Use Status: Never used Tobacco e-Cigarette/Vaping Use: Never Used Second Hand Smoke Exposure: No service: No Current occupational status: employed Current occupational exposures/hazards: No Cognitive needs: No Hearing needs: No Vision needs: No Questionnaire PHQ-9 Over the last 2 weeks, how often have you been bothered by any of the following problems? 1. Little interest or pleasure in doing things: not at all 2. Feeling down, depressed, or hopeless: not at all 3. Trouble falling or staying asleep, or sleeping too much: not at all 4. Feeling tired or having little energy: not at all 5. Poor appetite or overeating: not at all 6. Feeling bad about yourself - or that you are a failure or have let yourself or your family down: not at all 7. Trouble concentrating on things, such as reading the newspaper or watching television: not at all 8. Moving or speaking so slowly that other people could have noticed. Or the opposite - being so fidgety or restless that you have been moving around a lot more than usual: not at all 9. Thoughts that you would be better off or of hurting yourself in some way: not at all Total score: 0 Depression Screening Interpretation: Negative Source: Developed by Drs. Tunde Ragsdale, Leatha Curtis, Gautam Nunez and colleagues, with an educational harjit from [employer]. Thrive Questionnaire Date Thrive assessed: 02/07/23 I am a: Patient What is your living situation today?: I have a steady place to live Within the past 12 months, did the food you bought not last and you didn't have the money to get more?: Never true Within the past 12 months, did you worry whether your food would run out before you got money to buy more?: Never true Do you have trouble paying for medicines?: No Do you have trouble getting transportation to medical appointments?: No Do you have trouble paying your heating and electricity bill?: No Do you have trouble taking care of your child, family member or friend?: No Do you have trouble with day-to-day activities such as bathing, preparing meals, shopping, managing finances, etc.?: No Are you currently unemployed and looking for a job?: No Are you interested in more education?: No Currently or been in a relationship where the following occur: no concerns reported AUDIT C Alcohol Use Questionnaire (AUDIT-C) 1. How often do you have a drink containing alcohol?: Never Total Score: 0 DANIEL-7 AMB Questionnaire DANIEL-7 Date DANIEL - 7 assessed: 02/07/23 Feeling nervous, anxious, or on edge: 0 = Not at all Not being able to stop or control worryin = Not at all Worrying too much about different things: 0 = Not at all Trouble relaxin = Not at all Being so restless that it is hard to sit still: 0 = Not at all Becoming easily annoyed or irritable: 0 = Not at all Feeling afraid as if something awful might happen: 0 = Not at all Total DANIEL-7 score (0-4 normal; 5-9 mild; 10-14 moderate; 15-21 severe): 0 Source: Developed by Drs. Tunde Ragsdale, Leatha Curtis, Gautam Nunez and colleagues, with an educational harjit from [employer]. Physical exam (Primary Care) Vital Signs: Last Vital Signs Pulse 82 02/07/23 11:02 BP 138/76 02/07/23 11:02 Pulse Ox 98 02/07/23 11:02 Oxygen Delivery Method Room Air 02/07/23 11:02 Care Plan Goal for BP management: L 4th finger laceration BMI result Body Mass Index 29.0 Tobacco/Smoking Status: Tobacco use Status Tobacco use date assessed 02/07/23 02/07/23 11:03 Patient Tobacco Use Status Never used Tobacco 02/07/23 11:03 e-Cigarette/Vaping Use Never Used 02/07/23 11:03 PHQ-9: PHQ-9 Score PHQ-9: Total score 0 02/07/23 11:09 Depression Screening Interpretation: Negative Thrive Assessment: Date of Thrive Assessment Date Thrive assessed 02/07/23 02/07/23 11:03 Currently or been in a relationship where the following occur: no concerns reported Const General: alert; No acute distress Eyes Conjunctivae: conjunctivae normal Resp Auscultation: clear to auscultation bilaterally Cardio Rate: regular rate Rhythm: regular rhythm GI Inspection: Yes normal to inspection Extrem Hand/finger images: 2 1. 2 cm laceration mwith 4 sutures mild swelling , no redness Assessment and Plan Assessment & Plan (1) Finger laceration: Code(s): S61.219A - Laceration without foreign body of unspecified finger without damage to nail, initial encounter Plan: 4 sutures taken out after 5 days watch out for redness and more swelling. Presently on antibiotic doing good. Place topical antibiotic and tube gauze placed (2) Fracture of phalanx of finger of left hand: Code(s): S62.609A - Fracture of unspecified phalanx of unspecified finger, initial encounter for closed fracture Plan: referral to Dr. Ray Orders: Referrals 2 Orthopedics Referral S62.609A - Fracture of unspecified phalanx of unspecified finger, initial encounter for closed fracture Coding Level of Care Code Est Pt Level 3 (97182) Diagnoses Finger laceration S61.219A Fracture of phalanx of finger of left hand S62.609A
== END 2023-02-07 12:07 | disposition home or self-care (01) ==
PROVIDERS: PCP Internal Medicine; Visit Provider Internal Medicine
DX: S61.219A Laceration without foreign body of unspecified finger without damage to nail, initial encounter (principal); S62.609A Fracture of unspecified phalanx of unspecified finger, initial encounter for closed fracture
CPT/HCPCS: 99213

== ENCOUNTER 2023-02-09 03:41 | Emergency (ER) | payer OTHER, SELFPAY ==
[2023-02-09 03:48] VITALS: BP 152/89; PULSE 102; RESP 20; TEMP 36.8; O2SAT 99; BMI 29.0
--- NOTE | 2023-02-09 04:10 | ED_ITS ---
HPI - Extremity Problem General Chief complaint: Extremity Problem Stated complaint: finger broken/lac Time Seen by Provider: 02/09/23 03:59 Source: patient, family and old records reviewed Mode of arrival: ambulatory Limitations: no limitations History of Present Illness HPI Narrative: 42 yo male with PMH of L 4th finger injury with nondisplaced fracture and laceration on 02/02 initially treated at [place]. Caused by copper pipe. He has had tdap, oral cephalosporin. Followed up with his PCP initially given 20 oxycodone for injury on 02/02 saw PCP on 02/06 still in pain - they felt his hand was more red and concern for infection started on doxycycline. He has been compliant with all medications. He does not have ortho appointment yet. He has not heard from them. He comes in tonight due to pain and feels his hand is more swollen. He has no fevers. He states it hurts in his hand and arm and has tingling in the L 4th/5th fingers. MD Complaint: extremity pain Onset (ago): day(s) (1 week) Pain Consistency: constant Location: left and upper extremity Quality: other (throbbing) Radiation: proximal and distal Relieving factors: nothing Exacerbating factors: range of motion and palpation Associated symptoms: other (feels his arm is swollen) Context: other (recent laceration with infection) Related Data Home Medications Medication Instructions Recorded Confirmed ibuprofen 600 mg tablet mg PO 02/06/23 02/07/23 Previous Rx's Medication Instructions Recorded doxycycline hyclate 100 mg tablet 100 mg PO BID 7 days #14 tabs 02/06/23 cyclobenzaprine 10 mg tablet 10 mg PO TID PRN muscle spasm #20 02/09/23 tabs Allergies Allergy/AdvReac Type Severity Reaction Status Date / Time naproxen Allergy Mild Hives Verified 02/07/23 11:02 tramadol [TRAMADOL] Allergy Unknown HEADACHE, Verified 02/07/23 11:02 NAUSEA, rash Review of Systems Review of Systems: Constitutional : No Fever, No Chills, Cardiovascular : No Chest Pain, No SOB Respiratory : No Dyspnea Gastrointestinal : No abdominal pain Musculoskeletal : No Joint Swelling, pos arm pain Skin : No rash, positive skin laceration Neuro : No Weakness, No Numbness PMFSH Past Medical History Attestation statement: The following information was validated with the patient. Medical History Right lumbar radiculopathy S/P extracorporeal shock wave therapy Renal stones Orchalgia Surgical History History of testicular surgery Previous back surgery Family History Family History Father Hypertension Mother Hypertension Diabetes Maternal Uncle Lung cancer Social History Social History Housing: Apartment Alcohol intake: never Patient Tobacco Use Status: Never used Tobacco e-Cigarette/Vaping Use: Never Used Second Hand Smoke Exposure: No service: No Current occupational status: employed Current occupational exposures/hazards: No Cognitive needs: No Hearing needs: No Vision needs: No Physical Exam Vital Signs: Vital Signs: Last Vital Signs Temp 98.2 F 02/09/23 03:48 Pulse 102 H 02/09/23 03:48 Resp 20 02/09/23 03:48 BP 152/89 H 02/09/23 03:48 Pulse Ox 99 02/09/23 03:48 O2 Del Method Room Air 02/09/23 03:48 BMI result Body Mass Index 29.0 Appearance: Alert. Oriented X3. No acute distress. Eyes: Pupils equal, round and reactive to light. ENT: Pharynx normal. Neck: Normal inspection. Neck supple. CVS: Normal heart rate and rhythm. Pulses normal. Respiratory: No respiratory distress. Breath sounds normal. Abdomen: Soft and nontender. Skin: Skin warm and dry. Normal skin color. Normal skin turgor. Extremities: No lower extremity edema. L hand there is no erythema or warmth at all - well healing laceration on 4th digit no drainage. I see no swelling in comparison and he has normal ROM of fingers including the 4th. He has BCR in digits and has 2+ radial and brachial pulse, he has 2+ brachioradialis DTR. He has soft and compressible compartments. He has no prox tendon sheath ttp. He has no signs of swelling over the carpal tunnel. He has pain when you touch his fingers in arm in areas where he states it feels tingly. Neuro: Oriented X 3. No motor deficit. No sensory deficit. Medical Decision Making Medical Decision Making MDM Narrative: 42 yo male with hx of renal colic here with L hand pain and arm pain he is NV intact on exam has bounding pulses and no signs of infection or swelling on my exam - I do not suspect cellulitis, abscess, tendon sheath infection, compartment syndrome. I do not think he has nerve compression though I will put on wrist splint for comfort for possible early carpal tunnel if he is holding his wrist oddly post injury. I am not going to Rx anymore narcotics he can switch to tylenol/motrin and start on muscle relaxers. Can follow up with orthopedics. Differential Diagnosis Differential Diagnoses: The differential diagnosis associated with the presentation includes pain syndrome, MSK strain, laceration no signs of infection or underlying infection doubt ischemia BCR and 2+ radial pulse Independent Historian Clinical information obtained from an independent historian. History obtained from or confirmed by: Parent External Record Review External record reviewed: Inpatient record and Office record Prescription Management I considered prescription management with: Other (flexeril) Discharge Plan Discharge Clinical Impression: Hand pain, left Patient Disposition: Home, Self-Care Instructions: Arthralgia (ED) Additional Instructions: finish all antibiotics, continue to keep it elevated and monitor for signs of infection - redness, yellow drainage, fevers. wear a splint for comfort of the wrist. make sure Dr. Peña follows the wound you can call our orthopedics team as well Prescriptions: New cyclobenzaprine 10 mg tablet 10 mg PO TID PRN (Reason: muscle spasm) Qty: 20 0RF No Action ibuprofen 600 mg tablet PO doxycycline hyclate 100 mg tablet 100 mg PO BID 7 Days Qty: 14 0RF Referrals: Barbara Maradiaga MD [Physician] - (call to schedule appointment)
[2023-02-09] MEDS: Cyclobenzaprine HCl 10 MG TABLET PO (04:17)
== END 2023-02-09 04:33 | disposition home or self-care (01) ==
LOC: HO.ED 04:22
PROVIDERS: Emergency Provider Emergency Medicine; PCP Internal Medicine
DX: Z04.2 Encounter for examination and observation following work accident (principal); M79.642 Pain in left hand
CPT/HCPCS: 99283

== ENCOUNTER 2023-02-21 10:13 | Outpatient (AMB) | payer OTHER, SELFPAY ==
--- NOTE | 2023-02-21 10:49 | MHC.OFFVIS ---
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 Seen at work connection at [facility] and in [facility] ED, where he was given a wrist brace and his ring finger was splinted. Currently states he has some numbness and tingling that started since DOI. States wrist brace worsen his finger pain. Allergies naproxen Allergy (Mild, Verified 02/21/23 11:57) Hives tramadol [TRAMADOL] Allergy (Unknown, Verified 02/21/23 11:57) HEADACHE, NAUSEA, rash HPI oval or circular glass cutter- Hand pain, left HPI Details Car is a 42 year old right hand dominant man who presents with complaints of left ring finger pain. He is S/P ring finger fracture and laceration, DOI: 02/02/23, which was managed at an outside clinic. He was seen in the ED on 02/09/23 with complaints of pain and swelling, and given a course of oral Abx. 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 Says he was on doxycycline for about 4 days He complains today mostly of stiffness in his fingers, along with some numbness in in the radial aspect of the ring finger. He has been wearing a wrist splint, which the ED provided for him in case he had carpal tunnel syndrome. He says his numbness in the index and middle fingers occurs 1-2 times weekly, and is not worse at night. 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 Current occupational exposures/hazards: No Cognitive needs: No Hearing needs: No Vision needs: No Review of Systems Const All systems reviewed & are unremarkable except as noted in HPI and below Physical Exam Vital Signs: BMI result Body Mass Index 29.1 Const General: cooperative, healthy appearing and no acute distress Orientation/consciousness: patient oriented x3 HEENT Head: Yes normocephalic and Yes atraumatic Eyes EOM: EOMs intact bilaterally Resp Effort & Inspection: normal respiratory effort and able to speak in complete sentences Cardio Jugular venous distension: no JVD Skin General skin exam: turgor normal Rashes: no rashes Neuro General: patient oriented x3 Extrem Other: Evaluation of Left Upper Extremity: The patient is alert, oriented, and in no acute distress Neuro: Dense numbness in the radial digital nerve distribution of the left ring finger distal to the healed laceration. Otherwise Normal sensation in the median & ulnar nerve distribution Vascular: Cap refill brisk ROM: With encouragement, and while grimacing, he could bring his fingers closed to a fist and back into extension. We did this multiple times and before leaving he was ble to perform this easily Skin: There is a healed laceration over the radial aspect of the ring finger, at about the DIP joint No Erythema or evidence of infection. Some mild hypersensitivity Dense numbness distal to that area, on the radial aspect of the finger, distal to the DIP joint Radiographs: 3 views of the left hand were taken and viewed by me today in clinic. They show a transversely oriented fracture of the radial base of the ring finger distal phalanx, nondisplaced. No evidence of osteomyelitis.. Psych Appearance: grossly normal Affect: normal affect Attitude: cooperative Office Procedures Fracture Care Details: Fracture care 13876 Fracture Billing Code: Fracture Billing Code Assessment & Plan Assessment & Plan (1) Fracture of phalanx of finger of left hand: Code(s): S62.609A - Fracture of unspecified phalanx of unspecified finger, initial encounter for closed fracture (2) Numbness of left hand: Code(s): R20.0 - Anesthesia of skin Plan Assessment & Plan: 1. Open Left ring finger distal phalanx fracture, non-displaced Of the radial base DOI: 02/02/23 This is a work-related injury, struck by a copper pipe I educated him about this condition I recommend we continue to manage this conservatively I explained the signs and symptoms of infection, if the patient develops any new or worsening erythema, drainage, pain, or warmth they should contact the clinic or attend the ED. He was placed on a new course of Augmentin out of an abundance of caution, to decrease risk of possible bone infection. At present he does not have any visible evidence of infection He will work on finger ROM exercises at home, out of his splint He was fitted for a new finger splint, that allows for PIP joint motion, to be worn when out of the house only for the next few weeks I discussed activity modification, he is to avoid any pinching or gripping activities for the next few weeks He should massage about his laceration site to reduce the risk of hypersensitivity He was given a note for work to return on light duty, with a 2lb weight limit for the next 3 weeks He will follow up 3 weeks for a ROM check, with X-rays, 3V L RF I anticipate a return to full duty at his next appointment 2. Left radial digital nerve injury Just distal to the DIP joint Dense numbness in the radial digital nerve distribution. I explained that he will likely continue to have some numbness in this area. No operative treatment indicated. 3. Occasional numbness in the median nerve distribution of the hand. I educated him about carpal tunnel syndrome. If his symptoms worsen or become more frequent he can contact the clinic to discuss a possible NCS. Scribed for Barbara Maradiaga MD by Otilio Anthony, medical review coordinator, on 02/21/23 at 12:15 PM, EST. Orders: Orders XR hand LT min 3V Today M79.643 - Pain in unspecified hand Julisa Epstein PA-C Medications: New amoxicillin-pot clavulanate 875-125 mg 1 tab PO Q12H 14 tabs 0RF Barbara Maradiaga MD Coding Level of Care Code New Pt Level 3 (75576) Diagnoses Fracture of phalanx of finger of left hand S62.609A Numbness of left hand R20.0 CPT Codes Fracture Care - Fracture Billing Code: Fracture Billing Code ([id number])
[2023-02-21 11:52] VITALS: BMI 29.1
== END 2023-02-21 12:26 | disposition home or self-care (01) ==
PROVIDERS: PCP Internal Medicine; Visit Provider Orthopaedic Surgery
DX: S62.665B Nondisplaced fracture of distal phalanx of left ring finger, initial encounter for open fracture (principal); R20.0 Anesthesia of skin
CPT/HCPCS: 26750; 99204

== ENCOUNTER 2023-02-21 10:13 | Outpatient (REF) | payer OTHER, SELFPAY ==
--- NOTE | ~2023-02-21 | XR_ITS ---
EXAMINATION: XR HAND, LEFT CLINICAL INFORMATION: Pain in unspecified hand COMPARISON: None available. TECHNIQUE: PA, lateral, and oblique views of the left hand. FINDINGS: The bones are intact. No fracture. Alignment is anatomic. Joint spaces are maintained. There is a 0.2 cm erosion within the the base of the distal phalanx of the ring finger. XR/XR hand LT min 3V IMPRESSION: 1. No acute bony abnormality. 2. 0.2 cm erosion within the base of the distal phalanx of the ring finger.
== END 2023-02-21 10:14 | disposition home or self-care (01) ==
LOC: HO.HOSX 10:13
PROVIDERS: PCP Internal Medicine; Visit Provider Orthopaedic Surgery
DX: R20.0 Anesthesia of skin (principal); S62.665A Nondisplaced fracture of distal phalanx of left ring finger, initial encounter for closed fracture
CPT/HCPCS: 26750; 73130

== ENCOUNTER 2023-03-14 11:16 | Outpatient (REF) | payer OTHER, SELFPAY ==
--- NOTE | ~2023-03-14 | XR_ITS ---
EXAMINATION: XR HAND, LEFT CLINICAL INFORMATION: Pain in left hand, attention to first finger COMPARISON: 02/21/2023 TECHNIQUE: PA, lateral, and oblique views of the left hand. FINDINGS: There is no acute fracture or dislocation. There is linear lucency through the base of distal phalanx of left hand most likely consistent with healed fracture deformity of indeterminate age. Questionable erosion on the previous examination is not obvious currently. Soft tissues unremarkable. XR/XR hand LT min 3V IMPRESSION: Most likely healed fracture at the base of fourth finger on the left.
== END 2023-03-14 11:17 | disposition home or self-care (01) ==
LOC: HO.HOSX 11:16
PROVIDERS: Visit Provider Orthopaedic Surgery
DX: M79.642 Pain in left hand (principal)
CPT/HCPCS: 73130

== ENCOUNTER 2023-03-14 12:15 | Outpatient (AMB) | payer OTHER, SELFPAY ==
[2023-03-14 12:39] VITALS: BMI 29.1
--- NOTE | 2023-03-14 12:39 | A.OFFVIS_ITS ---
Intake Vital Signs 03/14/23 12:39 Height 5 ft 11 in Weight 209 lb BMI 29.1 Intake Visit Reasons: ov- L RF P1 FX Intake Note: Brain 42 yr old male presents today for his follow up visit for his W/C injury from 02/02/23 Fracture of phalanx of finger of left hand. States he cont's to wear finger brace. He is having numbness around his finger and pain in his joints. 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 He has not been working since his injury He returns today with complains of pain in his finger joints, along with some ongoing numbness in in the radial aspect of the ring finger. He is seen today wearing his finger splint. He has been performing ROM exercises and says that has been improving. He denies any symptoms of infection [facility] Medical History Right lumbar radiculopathy S/P extracorporeal shock wave therapy Renal stones Orchalgia Surgical History History of testicular surgery Previous back surgery Family History Father Hypertension Mother Hypertension Diabetes Maternal Uncle Lung cancer Social History (Updated 02/21/23 @ 12:00 by Nishi Villalta [facility]) Housing: Apartment Alcohol intake: never Patient Tobacco Use Status: Never used Tobacco e-Cigarette/Vaping Use: Never Used Second Hand Smoke Exposure: No service: No Current occupational status: employed 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 Current occupational exposures/hazards: No Cognitive needs: No Hearing needs: No Vision needs: No Physical Exam Vital Signs: BMI result Body Mass Index 29.1 Const General: cooperative, healthy appearing and no acute distress Orientation/consciousness: patient oriented x3 HEENT Head: Yes normocephalic and Yes atraumatic Eyes EOM: EOMs intact bilaterally Resp Effort & Inspection: normal respiratory effort and able to speak in complete sentences Cardio Jugular venous distension: no JVD Skin General skin exam: turgor normal Rashes: no rashes Neuro General: patient oriented x3 Extrem Other: Evaluation of Left Upper Extremity: The patient is alert, oriented, and in no acute distress Neuro: He does have numbness on the dorsal aspect of his finger, distal to the laceration. He also has dense numbness in both the radial and ulnar digital nerve distributions of the pad on the left ring finger. Sensation intact at about the DIP flexion crease proximally. Normal sensation to the adjacent digits. Vascular: Cap refill brisk ROM: Full active extension and can bring all fingers closed to a tight fist without discomfort Skin: There is a healed laceration over the radial aspect of the ring finger, at about the DIP joint No Erythema or evidence of infection. Radiographs: 3 views of the left hand were taken and viewed by me today in clinic. They show a transversely oriented fracture of the radial base of the ring finger distal phalanx, nondisplaced, with satisfactory fracture alignment and good evidence of interval bony healing Psych Appearance: grossly normal Affect: normal affect Attitude: cooperative Assessment & Plan Assessment & Plan (1) Fracture of phalanx of finger of left hand: Code(s): S62.609A - Fracture of unspecified phalanx of unspecified finger, initial enc ounter for closed fracture (2) Numbness of left hand: Code(s): R20.0 - Anesthesia of skin Plan Assessment & Plan: 1. Open Left ring finger distal phalanx fracture, non-displaced Of the radial base DOI: 02/02/23 This is a work-related injury, struck by a copper pipe I educated him about this condition I recommend we continue to manage this conservatively I explained the signs and symptoms of infection, if the patient develops any new or worsening erythema, drainage, pain, or warmth they should contact the clinic or attend the ED. At present he does not have any visible evidence of infection and he has completed his course of PO Augmentin He will continue to work on finger ROM exercises at home He will discontinue his finger splint at this time I discussed activity modification, he is to avoid any heavy pinching or gripping activities for the next few weeks He was given a note for work to return on light duty, with a 5lb weight limit with his LUE, beginning 03/15/23 for 2 weeks. Increase to full duty on 03/29/23. He can follow up prn 2. Left radial digital nerve injury Just distal to the DIP joint Dense numbness in the radial digital nerve distribution. I explained that he will likely continue to have some numbness in this area, and may take up to 9 months S/P injury to improve No operative treatment indicated. 3. Occasional numbness in the median nerve distribution of the hand. I educated him about carpal tunnel syndrome. If his symptoms worsen or become more frequent he can contact the clinic to discuss a possible NCS. Scribed for Barbara Maradiaga MD by Otilio Anthony, medical delivery technician, on 03/14/23 at 12:55 PM, EST. Orders: Orders XR hand LT min 3V Today M79.642 - Pain in left hand Coding Level of Care Code Global (78844) Diagnoses Fracture of phalanx of finger of left hand S62.609A Numbness of left hand R20.0
== END 2023-03-14 13:07 | disposition home or self-care (01) ==
PROVIDERS: PCP Internal Medicine; Visit Provider Orthopaedic Surgery
DX: S62.609A Fracture of unspecified phalanx of unspecified finger, initial encounter for closed fracture (principal); R20.0 Anesthesia of skin
CPT/HCPCS: 99024

== ENCOUNTER 2023-08-22 14:50 | Outpatient (AMB) | payer OTHER, SELFPAY ==
[2023-08-22 14:49] VITALS: BP 156/88; PULSE 120; TEMP 36.7; O2SAT 97; BMI 31.3
--- NOTE | 2023-08-22 14:49 | AM.OFFWIN_ITS ---
Intake Vital Signs 08/22/23 14:49 Height 5 ft 11 in Weight 224 lb 6 oz BMI 31.3 BP 156/88 H Blood Pressure Location Lt brachial Position Sitting Pulse 120 H Pulse Source Pulse Oximeter Temp 98.0 F Temp Source Oral Pulse Oximetry (%) 97 Oxygen Delivery Method Room Air Intake Visit Reasons: EP RT hand injury Intake Note: Pt presents to the office today for c/o right hand injury. Pt states he was cooking soup yesterday and states the soup spilled all over his hand. He states he has swelling in his right hand today and has a lot of pain where the soup spilled on him. Patient Tobacco Use Status: Never used Tobacco Allergies naproxen Allergy (Mild, Verified 08/22/23 15:11) Hives tramadol [TRAMADOL] Allergy (Unknown, Verified 08/22/23 15:11) HEADACHE, NAUSEA, rash Medication List - Last Reconciled 08/22/23 by Jian Stone MD meloxicam 15 mg PO DAILY HPI EP RT hand injury HPI Details 42 yr old male presents to the office fo r a sick visit. Patient had hot soup spilling on to his right hand yesterday. No blisters, but the area is red. Burning and pain in the hand are the main symptoms. 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 No blisters noted. No break in skin. Assessment & Plan Assessment & Plan (1) Superficial burn of back of right hand: Code(s): T23.161A - Burn of first degree of back of right hand, initial encounter Plan: Patient was informed that the skin area could blister. Meloxicam for pain control provided. If sx not better, to follow up here. Medications: New meloxicam 15 mg PO DAILY 14 tabs 0RF Coding Level of Care Code Est Pt Level 3 (30662) Diagnoses Superficial burn of back of right hand T23.161A
== END 2023-08-22 16:18 | disposition home or self-care (01) ==
PROVIDERS: PCP Internal Medicine; Visit Provider Internal Medicine
DX: T23.161A Burn of first degree of back of right hand, initial encounter (principal)
CPT/HCPCS: 99213

== ENCOUNTER → 2024-02-15 15:32 | Outpatient (BNVA) | payer MEDICAID, SELFPAY | PROVIDERS: PCP Internal Medicine; Visit Provider Internal Medicine ==

== ENCOUNTER 2024-03-23 09:11 | Outpatient (AMB) | payer OTHER, SELFPAY ==
[2024-03-23 09:36] VITALS: BP 146/90; PULSE 91; TEMP 36.9; O2SAT 97; BMI 32.4
--- NOTE | 2024-03-23 09:36 | AM.OFFWIN_ITS ---
Intake Vital Signs 03/23/24 09:36 Height 5 ft 11 in Weight 232 lb BMI 32.4 BP 146/90 H Blood Pressure Location Lt brachial Position Sitting Pulse 91 Pulse Source Pulse Oximeter Temp 98.4 F Temp Source Oral Pulse Oximetry (%) 97 Oxygen Delivery Method Room Air Intake Visit Reasons: EP LT ankle pain Intake Note: Pt is here today c/o Lt ankle pain x1week no injury noted Patient Tobacco Use Status: Never used Tobacco Allergies naproxen Allergy (Mild, Verified 04/02/24 13:44) Hives tramadol [TRAMADOL] Allergy (Unknown, Verified 04/02/24 13:44) HEADACHE, NAUSEA, rash HPI EP LT ankle pain HPI Details Patient is a 43-year-old male comes to the walk-in clinic complaining of left ankle pain for about the last week, with no acute or repetitive injury noted. He notes severe pain with ambulation, along with mild swelling to the left ankle and foot. He did try resting icing and elevating the leg, as well as trialing [id number] anti-inflammatories with no relief. He is very anxious about a blood clot, although there was no recent travel, bleeding dyscrasias, or sedentary lifestyle risk factors that he can relay. No fever or chills, joint enlargement, rashes, myalgias or malaise, headaches, dizziness or vertigo, weakness numbness or tingling or other associated symptoms. 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 He has good range of motion and good strength although tenderness with plantar flexion especially. He has no stiffness to the Achilles tendon and Achilles reflex intact. There is no palpable cord or masses to the calf and no calf tenderness or stiffness. He has an antalgic gait as he complains of severe pain with ambulation, and favors the left leg. It is neurovascularly intact distally. Assessment & Plan Assessment & Plan (1) Pedal edema: Code(s): R60.0 - Localized edema Plan Patient is a 43-year-old male comes to the walk-in clinic complaining of left spontaneous severe ankle pain for about the last week, with no acute or repetitive obvious injury noted. I think it is possible that he did sprain ankle unknowingly, however he does have some edema and he is extremely anxious about having a blood clot. I told him that I could do an x-ray in the walk-in, but I do not have the capability to order an ultrasound for him here. I told him he would have to go to the emergency department for that, and he was amenable to this. So expect was called in for him at [facility]. Coding Level of Care Code Est Pt Level 3 (93134) Diagnoses Pedal edema R60.0
== END 2024-03-23 10:59 | disposition home or self-care (01) ==
PROVIDERS: PCP Internal Medicine; Visit Provider Physician Assistant Medical
DX: R60.0 Localized edema (principal)

== ENCOUNTER → 2024-03-23 09:11 | Outpatient (BNVA) | payer OTHER, SELFPAY | PROVIDERS: PCP Internal Medicine | DX: M25.572 Pain in left ankle and joints of left foot (principal); R60.0 Localized edema | CPT/HCPCS: 99212 ==

== ENCOUNTER 2024-03-23 11:12 | Emergency (ER) | payer OTHER, SELFPAY ==
--- NOTE | ~2024-03-23 | XR_ITS ---
EXAMINATION: XR ANKLE, LEFT CLINICAL INFORMATION: Atraumatic pain and swelling COMPARISON: None available. TECHNIQUE: AP, lateral, and mortise views of the left ankle. FINDINGS: Visualized portion of the distal tibia and fibula demonstrate no fracture. Ankle mortise is well-maintained. No localized soft tissue swelling. No radiopaque foreign body. No gross ankle joint effusion. Tiny posterior and plantar calcaneal enthesophytes. Degenerative changes of the midfoot. XR/XR ankle LT min 3V IMPRESSION: Mild degenerative changes of the ankle without fracture or dislocation. Electronically signed by: Devin De Los Santos MD 03/23/2024 12:41 PM EDT
--- NOTE | ~2024-03-23 | US_ITS ---
EXAMINATION: US TRIPLEX LOWER EXTREMITY, LEFT CLINICAL INFORMATION: Swelling, pain, rule out DVT COMPARISON: None available. TECHNIQUE: Color-flow triplex imaging with spectral analysis and compression Doppler were performed on the left lower extremity. FINDINGS: Respiratory variation, normal compression and augmented flow are noted throughout the left lower extremity. The visualized common femoral vein, superficial femoral vein, profunda femoral vein, popliteal vein and midcalf peroneal and posterior tibial venous segments show no evidence of deep venous thrombosis. There is no Lei's cyst. US/US venous duplex LE LT IMPRESSION: No evidence of deep venous thrombosis involving the left lower extremity. Electronically signed by: Juan Bravo DO 03/23/2024 02:15 PM EDT
[2024-03-23 11:31] VITALS: BP 143/88; PULSE 119; RESP 16; TEMP 36.6; O2SAT 97; BMI 32.4
--- NOTE | 2024-03-23 11:32 | ED.LOWEXIN ---
HPI - Extremity Injury (Lower) General Chief Complaint: Extremity Injury, Lower Stated Complaint: l ankle pain Time Seen by Provider: 03/23/24 12:01 Source: patient and family Mode of arrival: ambulatory Limitations: no limitations History of Present Illness ED Provider: Abril Jackson APRN HPI Narrative: 43-year-old male here with complaints of atraumatic left ankle pain for several days with no improvement with ibuprofen, heat or ice at home. Patient reports he went to urgent care and they had concern for DVT and so they referred him into the emergency department for further evaluation. He denies any erythema, numbness, tingling. Denies any injury or trauma. Does report some swelling. No previous surgery on the ankle or hardware in place. No recent travel. No recent hospitalizations. Patient denies any alcohol or drug use or IV drug abuse. Related Data Previous Rx's ?Medication ?Instructions ?Recorded cyclobenzaprine 10 mg tablet 10 mg PO Q8H PRN muscle spasm #15 03/23/24 tabs diclofenac sodium 1 % topical gel 2 g topical QID PRN pain #100 grams 03/23/24 (Voltaren Arthritis Pain) prednisone 20 mg tablet 40 mg (2 x 20 mg) PO DAILY #10 tabs 03/23/24 Allergies Allergy/AdvReac Type Severity Reaction Status Date / Time naproxen Allergy Mild Hives Verified 03/23/24 11:34 tramadol [TRAMADOL] Allergy Unknown HEADACHE, Verified 03/23/24 11:34 NAUSEA, rash Review of Systems Review of Systems: Yes all other systems are reviewed and are negative Constitutional: Constitutional: Reports no additional constitutional complaints, Denies body ache(s), Denies chills, Denies fever(s), Denies headache(s) and Denies weakness Eyes: Eyes: Reports no additional eye complaints and Denies change in vision ENT: Reports system reviewed and no additional complaints, except as documented, Denies dizziness, Denies headache(s), Denies nasal congestion, Denies nasal discharge and Denies neck pain Cardiovascular: Cardiovascular: Reports no additional cardiovascular complaints, Denies chest pain, Denies leg edema and Denies dyspnea Respiratory: Respiratory: Reports no additional respiratory complaints, Denies cough and Denies dyspnea Gastrointestinal: Gastrointestinal: Reports no additional gastrointestinal complaints, Denies abdominal pain, Denies diarrhea, Denies nausea and Denies vomiting Genitourinary: Genitourinary: Denies urinary incontinence Musculoskeletal: Musculoskeletal: Reports no additional musculoskeletal complaints, Denies back pain, Reports arthralgias, Reports joint swelling, Denies neck pain, Denies numbness and Denies tingling Integumentary/Breasts: Skin/Breast: Reports system reviewed and no additional complaints, except as docu and Denies rash Neurologic: Reports system reviewed and no additional complaints, except as documented, Denies Abnormal speech present, Denies dizziness, Denies headache(s), Denies numbness, Denies tingling and Denies weakness FOR[facility]LY [facility], [facility] Past Medical History Attestation statement: The following information was validated with the patient. Source: old records reviewed and nursing notes reviewed Medical History Right lumbar radiculopathy S/P extracorporeal shock wave therapy Renal stones Orchalgia Surgical History History of testicular surgery Previous back surgery Family History Family History Father Hypertension Mother Hypertension Diabetes Maternal Uncle Lung cancer Social History Social History Housing: Apartment Alcohol intake: never Patient Tobacco Use Status: Never used Tobacco Smoked in Last 30 Days: No e-Cigarette/Vaping Use: Never Used Second Hand Smoke Exposure: No Use of substances other than those prescribed or required for medical reasons: No Advance Directives: No Advance Directives Information Provided: Yes Do you have a plan to hurt others: No Plan service: No Current occupational status: employed 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 Current occupational exposures/hazards: No Cognitive needs: No Hearing needs: No Vision needs: No Physical Exam Vital Signs: Vital Signs: Last Vital Signs Temp 97 F 03/23/24 14:37 Pulse 86 03/23/24 14:37 Resp 16 03/23/24 14:37 BP 140/93 H 03/23/24 14:37 Pulse Ox 95 03/23/24 14:37 O2 Del Method Room Air 03/23/24 14:37 BMI result Body Mass Index 32.4 Const: General: cooperative, healthy appearing, comfortable and no acute distress Orientation/consciousness: patient oriented x3 Limitations: no limitations HEENT: Head: Yes normal to inspection Ears: hearing grossly normal bilaterally General nose exam: Normal external nose present Face and sinus: Yes normal facial exam Mouth: Normal oral and palatal mucosa present Throat: Yes posterior oropharynx normal Eyes: General: appearance normal, both eyes and all related structures Pupils: Equal, round and reactive pupils present Neck: Neck: Yes normal visual inspection Chest: Chest palpation & inspection: normal inspection of the chest Resp: Effort & Inspection: normal respiratory effort Auscultation: clear to auscultation bilaterally Cardio: Rate: regular rate Rhythm: regular rhythm Peripheral pulses: Peripheral pulses 2+ throughout GI: Inspection: Yes normal to inspection Palpation (GI): Soft to palpation and nontender Auscultation: normal bowel sounds Back/Spine/Pelvis: Thoracic/Lumbar Spine: thoracic and lumbar spine normal to inspection Skin: General skin exam: no rashes or lesions noted Neuro: General: patient oriented x3, no focal motor deficits and normal sensation to monofilament Cranial nerves: Yes Equal, round and reactive pupils present Cognition (Neuro): normal cognition Speech: No Abnormal speech present Gait exam (Neuro): Normal gait present Motor exam (neuro): 5/5 motor strength present throughout Extrem: Other: There is pain on palpation over the diffuse left ankle with mild swelling. There is no erythema or warmth. Patient has pain with active dorsiflexion and plantar flexion but is able. 2+ DP and PT pulses. Normal sensation. Pain on palpation over the tibia/fibula or foot. Negative Nino sign. Course Course Course Narrative: This is a Rapid Medical Examination (RME) performed by Matt Wylie PA-C in triage. Full HPI, ROS, assessment and treatment plan per primary provider in the Main ED. 43 yo male here for eval of atraumatic left hussein pain x2 days. trialing heat, motrin and tylenol at home w/o relief. no injury/ trauma to ankle. seen at today, provider was concerned for DVT and advised patient to come to ED. no hx VTE, DM, or IVDU. no recent travel or long car rides. +minimal swelling noted to left ankle when compared to right. no overlying cellulitis or deformity. diffusely ttp, no crepitus or fluctuance. no calf tenderness. Plan: labs, uric acid, xr Reevaluation(s) Reevaluation #1: Labs are unremarkable including uric acid and inflammatory levels. X-ray shows some degenerative changes. Ultrasound negative for DVT. Patient will be treated with prednisone course, Flexeril, Voltaren recommendations to continue Motrin and Tylenol home and follow up outpatient with his primary care providers. Will give Alexander wrap and crutches for ease and ambulation. Medications Administered Discontinued Medications Generic Name Dose Route Start Last Admin Trade Name Tara PRN Reason Stop Dose Admin Ketorolac Tromethamine 30 mg 03/23/24 13:16 03/23/24 14:02 Ketorolac Tromethamine 30 Mg/Ml Vial IM 03/23/24 13:17 30 mg ONCE ONE Administration Medical Decision Making Medical Decision Making [facility] Narrative: 43-year-old male here with complaints of atraumatic left ankle pain for several days with no improvement with ibuprofen, heat or ice at home. Patient reports he went to urgent care and they had concern for DVT and so they referred him into the emergency department for further evaluation. He denies any erythema, numbness, tingling. Denies any injury or trauma. Does report some swelling. No previous surgery on the ankle or hardware in place. No recent travel. No recent hospitalizations. Patient denies any alcohol or drug use or IV drug abuse. There is pain on palpation over the diffuse left ankle with mild swelling. There is no erythema or warmth. Patient has pain with active dorsiflexion and plantar flexion but is able. 2+ DP and PT pulses. Normal sensation. Pain on palpation over the tibia/fibula or foot. Negative Nino sign. Will obtain labs, x-ray and ultrasound Differential Diagnosis Differential Diagnoses: The differential diagnosis associated with the presentation includes Arthritis, tendonitis Low suspicion for cellulitis, septic joint, DVT, fracture, dislocation, achilles tendon rupture/tendonitis Admission/Observation Consideration of admission/observation: Escalation of care including admission/observation considered Lab Data MDM Lab Attestation statement: I reviewed the patient's lab results. 03/23/24 11:58 03/23/24 11:58 Labs: Lab Results 03/23/24 Range/Units 11:58 WBC 9.5 (4.8-10.8) X10*3/uL RBC 5.69 (4.60-5.80) X10*6/uL Hgb 17.5 (14.0-18.0) g/dl Hct 49.4 (42.0-52.0) % MCV 86.8 (80.0-98.0) fL MCH 30.8 (27.0-33.0) pg MCHC 35.4 (31.0-36.0) g/dl RDW 11.9 (11.0-16.0) % Plt Count 226 (160-400) X10*3/uL MPV 8.9 L (9.4-12.4) fL Immature Gran % (Auto) 0.4 (0.0-0.4) % Neut % (Auto) 68.2 (45-73) % Lymph % (Auto) 24.4 (20-40) % Childress % (Auto) 5.2 (2-11) % Eos % (Auto) 1.1 (0-4) % Baso % (Auto) 0.7 (0-2) % Lymph # (Auto) 2.3 (1.2-4.9) X10*3/uL Childress # (Auto) 0.5 (0.1-1.2) X10*3/uL Eos # (Auto) 0.1 (0.0-0.4) X10*3/uL Baso # (Auto) 0.1 (0.0-0.2) X10*3/uL Abs Immat Gran (auto) 0.04 H (0.00-0.03) X10*3/uL Absolute Neuts (auto) 6.5 (2.0-8.3) x10*3/uL Absolute Nucleated RBC 0.000 (0.0-0.012) X10*3/uL Nucleated RBC % (auto) 0.0 (0.0-0.2) /100WBC ESR 2 (0-15) MM/HR PT 10.5 L (10.9-12.4) SEC INR 0.9 (0.9-1.1) Sodium 140 (135-145) mmol/L Potassium 5.0 (3.3-5.1) mmol/L Chloride 104 (96-108) mmol/L Carbon Dioxide 29 (22-29) mmol/L Anion Gap 12 (12-20) BUN 8 L (9-16) mg/dL Creatinine 1.20 (0.5-1.4) mg/dL Estim Creat Clear Calc 97.0 Estimated GFR > 60 Random Glucose 102 (60-115) mg/dL Uric Acid 5.8 (3.4-7.0) mg/dL Calcium 10.3 H (8.4-10.2) mg/dL Total Bilirubin 0.4 (0.0-1.0) mg/dL AST 37 (5-37) U/L ALT 53 H (0-40) U/L Alkaline Phosphatase 58 (39-117) U/L C-Reactive Protein 0.26 (< or = 0.50) mg/dL Total Protein 7.6 (6.5-8.0) g/dL Albumin 4.7 (3.5-5.0) g/dL Independent Interpretation I performed an independent interpretation of an: Plain X-Ray and Ultrasound Interpretation: I independently viewed the x-ray/US and agree with the radiology report Radiology Impression Discussion of test interpretation with radiology: I have reviewed the radiologist's reading. Radiologist Impression: [place] [address] XRay Report Signed Patient: Car Hernandez MR#: [id number] : 1980 Acct:[id number] Age/Sex: 43 / M ADM Date: 03/23/24 Loc: .ED Attending Dr: Ordering Physician: Tresa Wylie Date of Service: 03/23/24 Procedure(s): XR ankle LT min 3V Accession Number(s): [id number] cc: Brittany Peña MD; Tresa Wylie~ EXAMINATION: XR ANKLE, LEFT CLINICAL INFORMATION: Atraumatic pain and swelling COMPARISON: None available. TECHNIQUE: AP, lateral, and mortise views of the left ankle. FINDINGS: Visualized portion of the distal tibia and fibula demonstrate no fracture. Ankle mortise is well-maintained. No localized soft tissue swelling. No radiopaque foreign body. No gross ankle joint effusion. Tiny posterior and plantar calcaneal enthesophytes. Degenerative changes of the midfoot. XR/XR ankle LT min 3V IMPRESSION: Mild degenerative changes of the ankle without fracture or dislocation. Electronically signed by: Devin De Los Santos MD 03/23/2024 12:41 PM EDT RP Launch?Image [place] [address] Ultrasound Report Signed Patient: Car Hernandez MR#: [id number] : 1980 Acct:[id number] Age/Sex: 43 / M ADM Date: 03/23/24 Loc: HO.ED Attending Dr: Ordering Physician: Abril Sorenson NP Date of Service: 03/23/24 Procedure(s): US venous duplex LE LT Accession Number(s): [id number] cc: Brittany Peña MD; Abril Sorenson NP~ EXAMINATION: US TRIPLEX LOWER EXTREMITY, LEFT CLINICAL INFORMATION: Swelling, pain, rule out DVT COMPARISON: None available. TECHNIQUE: Color-flow triplex imaging with spectral analysis and compression Doppler were performed on the left lower extremity. FINDINGS: Respiratory variation, normal compression and augmented flow are noted throughout the left lower extremity. The visualized common femoral vein, superficial femoral vein, profunda femoral vein, popliteal vein and midcalf peroneal and posterior tibial venous segments show no evidence of deep venous thrombosis. There is no Lei's cyst. US/US venous duplex LE LT IMPRESSION: No evidence of deep venous thrombosis involving the left lower extremity. Electronically signed by: Juan Bravo DO 03/23/2024 02:15 PM EDT Independent Historian Clinical information obtained from an independent historian. History obtained from or confirmed by: Parent Procedures Orthopedic Splinting/Casting Injury #1: Side: left Lower Extremity Immobilizer: Alexander wrap Other Orthopedic Equipment: crutches Discharge Plan Discharge Clinical Impression: Ankle pain, left Patient Disposition: Home, Self-Care Instructions: Arthralgia (ED) Additional Instructions: Rest, ice, elevation Use the compression bandage and crutches as needed Continue Motrin and Tylenol home Take the prednisone as prescribed and use the additional prescriptions as needed. Follow up with her primary care doctor for any continued symptoms Prescriptions: New prednisone 20 mg tablet 40 mg PO DAILY Qty: 10 0RF diclofenac sodium [Voltaren Arthritis Pain] 1 % gel 2 g topical QID PRN (Reason: pain) Qty: 100 0RF Rx Instructions: apply to single joint as needed cyclobenzaprine 10 mg tablet 10 mg PO Q8H PRN (Reason: muscle spasm) Qty: 15 0RF Referrals: Po,Brittany Leung MD [Primary Care Provider] - 1 week Print Language: Occitan
[2024-03-23 12:03] LABS: MANUAL DIFF FLAG NO
[2024-03-23 12:04] LABS: Basophils Absolute Auto 0.1 X10*3/uL (0.0-0.2); Basophils Percent Auto 0.7 % (0-2); Eosinophils Absolute Auto 0.1 X10*3/uL (0.0-0.4); Eosinophils Percent Auto 1.1 % (0-4); Hematocrit 49.4 % (42.0-52.0); Hemoglobin 17.5 g/dl (14.0-18.0); Imm Gran Abs Auto 0.04 X10*3/uL (0.00-0.03); Imm Gran Pct Auto 0.4 % (0.0-0.4); Lymphocytes Absolute Auto 2.3 X10*3/uL (1.2-4.9); Lymphocytes Percent Auto 24.4 % (20-40); Mean Corpuscular HGB Conc 35.4 g/dl (31.0-36.0); Mean Corpuscular Hemoglobin 30.8 pg (27.0-33.0); Mean Corpuscular Volume 86.8 fL (80.0-98.0); Mean Platelet Volume 8.9 fL (9.4-12.4); Monocytes Absolute Auto 0.5 X10*3/uL (0.1-1.2); Monocytes Percent Auto 5.2 % (2-11); Neutrophils Absolute Auto 6.5 x10*3/uL (2.0-8.3); Neutrophils Percent Auto 68.2 % (45-73); Platelet Count 226 X10*3/uL (160-400); Red Blood Count 5.69 X10*6/uL (4.60-5.80); Red Cell Distribution Width 11.9 % (11.0-16.0); White Blood Count 9.5 X10*3/uL (4.8-10.8)
[2024-03-23 12:19] LABS: INTERNATIONAL NORM RATIO 0.9 (0.9-1.1); Prothrombin Time 10.5 SEC (10.9-12.4)
[2024-03-23 12:24] LABS: Uric Acid 5.8 mg/dL (3.4-7.0)
[2024-03-23 12:25] LABS: Alanine Aminotransferase 53 U/L (0-40); Albumin Level 4.7 g/dL (3.5-5.0); Alkaline Phosphatase 58 U/L (39-117); Anion Gap 12 (12-20); Aspartate Amino Transferase 37 U/L (5-37); Bilirubin Total 0.4 mg/dL (0.0-1.0); Blood Urea Nitrogen 8 mg/dL (9-16); Calcium 10.3 mg/dL (8.4-10.2); Carbon Dioxide 29 mmol/L (22-29); Chloride 104 mmol/L (96-108); Estimated Glomerular Filt Rate > 60; Glucose Random 102 mg/dL (60-115); Sodium 140 mmol/L (135-145); Total Protein 7.6 g/dL (6.5-8.0)
[2024-03-23 12:56] VITALS: BP 154/85; PULSE 84; RESP 16; TEMP 36.9; O2SAT 95
[2024-03-23 13:56] LABS: C Reactive Protein 0.26 mg/dL (< or = 0.50)
[2024-03-23] MEDS: Ketorolac Tromethamine 30 MG/ML VIAL IM (14:02)
[2024-03-23 14:10] LABS: Erythrocyte Sedimentation Rate 2 MM/HR (0-15)
[2024-03-23 14:37] VITALS: BP 140/93; PULSE 86; RESP 16; TEMP 36.1; O2SAT 95
[2024-03-23 15:14] VITALS: BP 140/93; PULSE 86; RESP 16; TEMP 36.1; O2SAT 95
== END 2024-03-23 15:15 | disposition home or self-care (01) ==
PROVIDERS: Nurse Practitioner Family; Physician Assistant Medical; Emergency Provider Emergency Medicine Emergency Medical Services; PCP Internal Medicine
DX: M25.572 Pain in left ankle and joints of left foot (principal)
CPT/HCPCS: 36415; 73610; 80053; 84550; 85025; 85610; 85652; 86140; 93971; 96372; 99284; J1885

== ENCOUNTER 2024-04-02 13:41 | Outpatient (AMB) | payer OTHER, SELFPAY ==
[2024-04-02 13:42] VITALS: BP 158/80; PULSE 107; O2SAT 96; BMI 32.5
--- NOTE | 2024-04-02 13:42 | MHC.PC.OV ---
Vital Signs 04/02/24 13:42 Height 5 ft 11 in Weight 233 lb 0.2 oz BMI 32.5 BP 158/80 H Blood Pressure Location Rt brachial Position Sitting Pulse 107 H Pulse Source Pulse Oximeter Pulse Oximetry (%) 96 Oxygen Delivery Method Room Air Intake Visit Reasons: [facility] 03/23 rt ankle pain Intake Note: Patient is here to follow-up after a visit the emergency department at [facility] on 03/23/24 Allergies naproxen Allergy (Mild, Verified 04/02/24 13:44) Hives tramadol [TRAMADOL] Allergy (Unknown, Verified 04/02/24 13:44) HEADACHE, NAUSEA, rash Medication List - Last Reconciled 04/02/24 by Kristin Carrillo PA-C cyclobenzaprine 10 mg PO Q8H PRN diclofenac sodium 1% (Voltaren Arthritis Pain) 2 grams topical QID PRN Tobacco use date assessed: 04/02/24 Dental Screening Dental Screen Date: 02/07/23 HPI [facility] 03/23 rt ankle pain HPI Details 43-year-old overweight male with past medical history of lumbar radiculopathy, renal stones and LFT elevation last seen by Dr. Peña March 2023 coming in for hospital discharge follow up. In review of the notes, patient was seen in [facility] ED after being sent by urgent care who had a concern for DVT. Patient had atraumatic left ankle pain for 2 days having unremarkable labs, unremarkable x-ray and ultrasound negative for DVT. Patient was given course of prednisone, Flexeril and Voltaren gel and advised to continue on Motrin and Tylenol and was given Alexander wrap and crutches for ambulation. Patient tells us today he continues to have severe pain with ambulation and with full weight-bearing on the left ankle despite the use of Alexander wrap. Pain has not improved while using prednisone, Flexeril or Tylenol and ibuprofen. He can not identify inciting event for the ankle pain states it has been going on for almost 2 weeks with no improvement. 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 How often do you have a drink containing alcohol?: Never 3. How often do you have six or more drinks on one occasion?: Never Total Score: 0 DANIEL-7 AMB Questionnaire DANIEL-7 Date DANIEL - 7 assessed: 02/07/23 Source: Developed by Drs. Tunde Ragsdale, Leatha Curtis, Gautam Nunez and colleagues, with an educational harjit from [employer]. Review of Systems Const Denies body aches, Denies chills and Denies fever(s) Eyes Reports no additional complaints ENT Reports no additional complaints Card Denies chest pain, Denies syncope, Denies leg edema, Denies lightheadedness and Denies dyspnea Resp Denies dyspnea GI Reports no additional complaints Musc Details: Left ankle pain and swelling Neuro Denies syncope Physical exam (Primary Care) Vital Signs: Last Vital Signs Pulse 107 H 04/02/24 13:42 BP 158/80 H 04/02/24 13:42 Pulse Ox 96 04/02/24 13:42 Oxygen Delivery Method Room Air 04/02/24 13:42 BMI result Body Mass Index 32.5 Tobacco/Smoking Status: Tobacco use Status Tobacco use date assessed 04/02/24 04/02/24 13:45 Patient Tobacco Use Status Never used Tobacco 04/02/24 13:43 e-Cigarette/Vaping Use Never Used 04/02/24 13:43 Thrive Assessment: Date of Thrive Assessment Date Thrive assessed 02/07/23 04/02/24 13:43 Const General: cooperative, healthy appearing, comfortable and no acute distress Orientation/consciousness: patient oriented x3 [facility] Head: Yes normocephalic Ears: hearing grossly normal bilaterally General nose exam: Normal external nose present Eyes General: appearance normal, both eyes and all related structures Conjunctivae: conjunctivae normal Neck Neck: Yes full ROM and Yes no lymphadenopathy Resp Effort & Inspection: normal respiratory effort Auscultation: clear to auscultation bilaterally, no crackles, no rales, no rhonchi and no wheezes Cardio Rate: regular rate Rhythm: regular rhythm Skin General skin exam: no rashes or lesions noted Neuro General: patient oriented x3 Gait exam (Neuro): gait abnormal (Limping) Extrem Other: Tenderness to palpation over medial and lateral malleolus and anterior aspect of the ankle with mild swelling. No redness or warmth of the ankle and no evidence of infection. No edema. General: Yes normal to inspection, Yes full ROM, Yes no pedal edema and Yes no calf tenderness Psych Affect: normal affect Attitude: cooperative Insight: Good insight present (Psych) Judgement: Good judgement present (Psych) Coding Level of Care Code Est Pt Level 3 (61223) Diagnoses Ankle pain, left M25.572 Assessment & Plan Assessment & Plan (1) Ankle pain, left: Code(s): M25.572 - Pain in left ankle and joints of left foot Category: Medical Plan: DVT, gout, and ankle fracture or dislocation were ruled out by ER 2 weeks prior. Pain has not changed or worsened since that time but has been persistent. Low suspicion for infection in the ankle joint due to lack of redness, swelling and warmth. Concern for possible ankle sprain however patient does not identify inciting event. Advised patient to undergo physical therapy and referral placed for Orthopedics for further evaluation. Advised patient to weightbear as tolerated and avoid full weight-bearing if possible until evaluation from orthopedics. Advised patient to continue using Tylenol and ibuprofen as needed as well as Voltaren gel and Flexeril. Plan This note was constructed using voice recognition software. While every effort has been made to ensure accuracy and side laster tack, still areas may have been included sometimes these areas may affect the content or meeting of the given symptoms. Total time spent caring for the patient today was 20 minutes. This includes time spent before the visit reviewing the chart, time spent during the visit, and time spent after the visit and documentation. Orders: Orders PT Evaluation and Treatment 04/02/24 M25.572 - Pain in left ankle and joints of left foot Referrals Orthopedics Referral M25.572 - Pain in left ankle and joints of left foot
== END 2024-04-02 14:32 | disposition home or self-care (01) ==
PROVIDERS: PCP Internal Medicine
DX: M25.572 Pain in left ankle and joints of left foot (principal)

== ENCOUNTER → 2024-04-02 13:41 | Outpatient (BNVA) | payer OTHER, SELFPAY | PROVIDERS: PCP Internal Medicine | DX: M25.572 Pain in left ankle and joints of left foot (principal) | CPT/HCPCS: 99212 ==

== ENCOUNTER 2024-08-13 11:15 | Outpatient (REF) | payer OTHER, SELFPAY ==
--- NOTE | ~2024-08-13 | XR_ITS ---
EXAMINATION: XR FOOT 3 OR MORE VIEWS LEFT HISTORY: S90.30XA - Contusion of unspecified foot, initial encounter COMPARISON: There are no prior studies available for comparison. FINDINGS: Three views of the left foot are submitted. Osseous mineralization is normal. There is a nondisplaced oblique fracture of the proximal phalanx of the great toe. No additional fracture is seen. There is no dislocation. There is degenerative change of the tarsometatarsal joints. There is a small plantar calcaneal spur. The soft tissues are unremarkable. XR/XR foot LT min 3V IMPRESSION: Nondisplaced oblique fracture of the proximal phalanx of the great toe. Electronically signed by: Tunde Alvarado MD 08/13/2024 12:23 PM EDT
--- OUTSIDE RECORDS SUMMARY | 2024-08-13 14:03 | XMS_ITS | Clinical Summary ---
Author Organization [facility] Address [address] [place] [id number] Care Team Providers Care Automotive Machinist Apprentice Name Role Phone Brittany Peña MD Primary Care Provider [phone] Social History Tobacco Use Types Packs/Day Years [...] age to complete this topic Care Teams Automotive Machinist Apprentice Relationship Specialty Start Date End Date Brittany Peña MD [address] [place] [address] [address] [facility] [place] [address] PCP - General Internal Medicine 01/26/17
== END 2024-08-13 11:16 | disposition home or self-care (01) ==
LOC: HO.HMGCX 11:15
PROVIDERS: PCP Internal Medicine; Visit Provider Physician Assistant
DX: S90.32XA Contusion of left foot, initial encounter (principal); S92.415A Nondisplaced fracture of proximal phalanx of left great toe, initial encounter for closed fracture
CPT/HCPCS: 73630; 99212

== ENCOUNTER 2024-08-13 11:15 | Outpatient (AMB) | payer OTHER, SELFPAY ==
[2024-08-13 11:16] VITALS: BP 146/98; PULSE 102; TEMP 36.8; O2SAT 98; BMI 33.9
--- NOTE | 2024-08-13 11:16 | AM.OFFWIN_ITS ---
Intake Vital Signs 08/13/24 11:16 Height 5 ft 11 in Weight 243 lb BMI 33.9 BP 146/98 H Blood Pressure Location Rt brachial Position Sitting Pulse 102 H Pulse Source Pulse Oximeter Temp 98.3 F Temp Source Oral Pulse Oximetry (%) 98 Oxygen Delivery Method Room Air Intake Visit Reasons: EP LT foot pain/brusing (not wc) Intake Note: Pt presents to the office today for c/o left foot pain and bruising x 1 week. Pt states he hit his foot on the washing machine a week ago today and since has had swelling, and severe pain. Patient Tobacco Use Status: Never used Tobacco Allergies naproxen Allergy (Mild, Verified 08/13/24 11:17) Hives tramadol [TRAMADOL] Allergy (Unknown, Verified 08/13/24 11:17) HEADACHE, NAUSEA, rash HPI HPI Comments History of Present Illness Details This is a 43-year-old male presenting for evaluation of left foot pain. Patient states he was barefoot when he ?kicked the washing machine? 1 week ago. Patient has been taking Tylenol only for his discomfort. Patient reports pain in his 1st toe that extends across the distal metatarsals of the left foot. Patient has no pain on the plantar surface of his left foot. 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 Current occupational exposures/hazards: No Cognitive needs: No Hearing needs: No Vision needs: No Review of Systems Const Reports weakness Eyes Reports no additional complaints ENT Reports no additional complaints Card Reports no additional complaints Resp Reports no additional complaints GI Reports no additional complaints Reports no additional complaints Musc Details: left foot pain Reports no additional complaints Neuro Reports weakness Psych Reports no additional complaints Physical Exam Vital Signs: Last Vital Signs Temp 98.3 F 08/13/24 11:16 Pulse 102 H 08/13/24 11:16 BP 146/98 H 08/13/24 11:16 Pulse Ox 98 08/13/24 11:16 Oxygen Delivery Method Room Air 08/13/24 11:16 BMI result Body Mass Index 33.9 Const General: cooperative, healthy appearing, comfortable, no acute distress, well developed, alert and awake Nutritional Appearance: average body habitus Orientation/consciousness: patient oriented x3 Limitations: no limitations Skin Other: Very mild ecchymosis overlying the proximal phalanx of the left 1st toe, no overt edema noted left foot Neuro General: patient oriented x3 Extrem Left lower extremity: ankle (passive ROM left ankle intact; no tenderness to direct palpation) and foot (Pain to palpation 4th/5th distal metatarsals & proximal phalanx of 1st toe) Details: other (No pain to palpation of the plantar surface left foot) Results Reviewed Results Reviewed: Imaging is reviewed. Possible nondisplaced fracture of proximal phalanx 1st digit of the left toe that is not seen on other views. Final read is pending. Assessment & Plan Assessment & Plan (1) Foot contusion: Comment: Final reading: Nondisplaced oblique fracture of the proximal phalanx of the great toe. Patient is contacted with this result and will wear post-op shoe and follow-up with orthopedics as an outpatient. Code(s): S90.30XA - Contusion of unspecified foot, initial encounter Qualifiers: Encounter type: initial encounter Laterality: left Qualified Code(s): S90.32XA - Contusion of left foot, initial encounter Plan: Postop shoe, prednisone 40 mg x 4 days. Will call patient with final reading of imaging. (2) Fracture of proximal phalanx of toe: Code(s): S92.919A - Unspecified fracture of unspecified toe(s), initial encounter for closed fracture Plan: Orthopedics referral placed. Orders: Orders XR foot LT min 3V Today S90.30XA - Contusion of unspecified foot, initial encounter Referrals Orthopedics Referral S92.919A - Unspecified fracture of unspecified toe(s), initial encounter for closed fracture Medications: New prednisone 40 mg (2 x 20 mg) PO DAILY 8 tabs 0RF Coding Level of Care Code Est Pt Level 4 (12881) Diagnoses Contusion of left foot, initial encounter S90.32XA Encounter type: initial encounter Laterality: left Fracture of proximal phalanx of toe S92.919A Time Spent (min) 30
--- OUTSIDE RECORDS SUMMARY | 2024-08-13 13:37 | XMS_ITS | Clinical Summary ---
Author Organization [facility] Address [id number] [place] [id number] Care Team Providers Care Chemical Tank Worker Name Role Phone Brittany Peña MD Primary Care Provider [phone] Social History Tobacco Use Types Packs/Day Years Used Date Smoking Tobacco: Never Assessed Sex and Gender Information Value Date Recorded Sex Assigned at Not on file Legal Sex Male 5:15 AM EST Gender Identity Not on file Sexual Orientation Not on file Plan of Treatment Health Maintenance Due Date Last Done Comments DTaP,Tdap,and Td Vaccines (1 - Tdap) 10/05/1998 Hepatitis B Vaccines (1 of 3 - 19+ 3-dose series) 10/05/1998 Cholesterol Screening (Lipid Panel) 05/01/2022 Depression Screening 05/01/2022 HIV Screening 05/01/2022 Hepatitis C Screening 05/01/2022 Social Influencers of Health Screening 05/01/2022 COVID-19 Vaccine ( - 2023-2 5 season) 2024 Influenza Vaccine (#1) 2024 HIB Vaccines Aged Out No longer eligi ble based on patient's age to complete this topic HPV Vaccines Aged Out No longer eligi ble based on patient's age to complete this topic Hepatitis A Vaccines Aged Out No long er eligible based on patient's age to complete this topic IPV Vaccines Aged Out No longer eligi ble based on patient's age to complete this topic MMR Vaccines Aged Out No longer eligi ble based on patient's age to complete this topic Meningococcal ACWY Vaccine Aged Out N o longer eligible based on patient's age to complete this topic Meningococcal B Vacine Aged Out No lo nger eligible based on patient's age to complete this topic Pneumococcal Vaccine: Pediat rics (0 to 5 Years) and At-Risk Patients (6 to 64 Years) Aged Out No longer eligible b ased on patient's age to complete this topic RSV Immunization Patients Un praveena 20 months Aged Out No longer eligible b ased on patient's age to complete this topic Varicella Vaccines Aged Out No longer eligible based on patient's age to complete this topic Care Teams Chemical Tank Worker Relationship Specialty Start Date End Date Brittany Peña MD [address] [place] [address] [address] [facility] [place] [address] PCP - General Internal Medicine 01/26/17
== END 2024-08-13 12:12 | disposition home or self-care (01) ==
PROVIDERS: PCP Internal Medicine; Visit Provider Physician Assistant
DX: S90.32XA Contusion of left foot, initial encounter (principal); S92.919A Unspecified fracture of unspecified toe(s), initial encounter for closed fracture

== ENCOUNTER → 2024-08-13 11:43 | Outpatient (BNV) | payer OTHER, SELFPAY | PROVIDERS: PCP Internal Medicine; Visit Provider Radiology Diagnostic Radiology | DX: S92.415A Nondisplaced fracture of proximal phalanx of left great toe, initial encounter for closed fracture (principal) | CPT/HCPCS: 73630 ==

== ENCOUNTER 2024-09-19 14:19 | Emergency (ER) | payer OTHER, SELFPAY ==
--- NOTE | ~2024-09-19 | XR_ITS ---
EXAMINATION: XR HAND, LEFT CLINICAL INFORMATION: r/o FB/ lac COMPARISON: None available. TECHNIQUE: PA, lateral, and oblique views of the left hand. FINDINGS: No fracture, dislocation, or suspicious bone lesion. Normal bone mineralization. Normal alignment. Joint spaces are preserved. No significant arthropathy. Soft tissues appear normal. No radiopaque foreign body. XR/XR hand LT min 3V IMPRESSION: Normal left hand. Electronically signed by: Oscar Loaiza MD 09/19/2024 03:22 PM EDT
[2024-09-19 14:41] VITALS: BP 140/99; PULSE 114; RESP 16; TEMP 36.9; O2SAT 97; BMI 31.4
--- NOTE | 2024-09-19 14:42 | ED_ITS ---
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 Unsure if glasses stuck in there. Reports some paresthesias surrounding area. Denies crush injury, trauma. Tetanus up-to-date. Denies anticoagulation use Related Data Previous Rx's ?Medication ?Instructions ?Recorded prednisone 20 mg tablet 40 mg (2 x 20 mg) PO DAILY #8 tabs 08/13/24 bacitracin 500 unit/gram topical 1 appl topical BID #30 grams 09/19/24 ointment Allergies Allergy/AdvReac Type Severity Reaction Status Date / Time naproxen Allergy Mild Hives Verified 09/19/24 14:42 tramadol [TRAMADOL] Allergy Unknown HEADACHE, Verified 09/19/24 14:42 NAUSEA, rash Review of Systems Review of Systems: Yes all other systems are reviewed and are negative Constitutional: Constitutional: Reports as per HPI [facility] Past Medical History Attestation statement: The following information was validated with the patient. Source: old records reviewed Medical History Right lumbar radiculopathy S/P extracorporeal shock wave therapy Renal stones Orchalgia Surgical History History of testicular surgery Previous back surgery Family History Family History Father Hypertension Mother Hypertension Diabetes Maternal Uncle Lung cancer Social History Social History Housing: Apartment Alcohol intake: never Patient Tobacco Use Status: Never used Tobacco e-Cigarette/Vaping Use: Never Used Second Hand Smoke Exposure: No Advance Directives: No Advance Directives Information Provided: No Do you have a plan to hurt others: No Plan service: No Current occupational status: employed 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 Current occupational exposures/hazards: No Cognitive needs: No Hearing needs: No Vision needs: No Physical Exam Vital Signs: Vital Signs: Last Vital Signs Temp 98.5 F 09/19/24 14:41 Pulse 114 H 09/19/24 14:41 Resp 16 09/19/24 14:41 BP 140/99 H 09/19/24 14:41 Pulse Ox 97 09/19/24 14:41 O2 Del Method Room Air 09/19/24 14:41 BMI result Body Mass Index 31.4 Const: General: cooperative, healthy appearing and no acute distress Orientation/consciousness: patient oriented x3 Limitations: no limitations HEENT: Head: Yes normal to inspection and Yes atraumatic Ears: hearing grossly normal bilaterally General nose exam: Normal external nose present Face and sinus: Yes normal facial exam Eyes: General: appearance normal, both eyes and all related structures EOM: EOMs intact bilaterally Neck: Neck: Yes normal visual inspection and Yes no meningeal signs Resp: Effort & Inspection: normal respiratory effort and no respiratory distress Cardio: Rate: regular rate Skin: Other: 2 cm superficial laceration noted to lef t hand dorsal aspect between 1st and 2nd digit web space. Underlying structures appear intact. No evidence of tendon/ligamental rupture. Bleeding controlled FROM & NV intact. no appreciable FB Rashes: no rashes Wounds: no wounds Neuro: General: patient oriented x3, tone normal and no meningeal signs Cranial nerves: Yes CN's II-XII intact bilaterally Gait exam (Neuro): Normal gait present Extrem: General: Yes normal to inspection Course Course Course Narrative: This is a Rapid Medical Exam performed in triage by Lynn Garcia PA-C. Full HPI, ROS and PE to be performed by primary ED provider. 43 yo M presenting to the ED c/o laceration to L hand s/p cutting on broken glass [employer]ET[employer]. ?FB. Tetanus UTD. denies AC use PE: 2cm superficial lac to L hand. Bleeding controlled. Plan: X-ray, wound repair XR hand LT min 3V IMPRESSION: Normal left hand. > sutures placed by DELIA Nicholas w/ my supervision Results discussed with patient including worrisome signs and symptoms and strict return precautions, and when to return to the emergency department. They verbalized understanding and feel safe for discharge at this time. 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 On exam mildly tachycardic, NAD, nontoxic appearing, physical exam as noted above. Superficial laceration without appreciable foreign body. Neurovascularly intact. Full range of motion intact. Low suspicion for tendon/ligamental rupture. No evidence of infection. Psych: X-ray, wound repair Please refer to course for remaining clinical decision making, interpretation of labs/imaging results, and discussions with consultants and/or family members. Differential Diagnosis Differential Diagnoses: The differential diagnosis associated with the presentation includes As above Independent Interpretation I performed an independent interpretation of an: Plain X-Ray Radiology Impression Discussion of test interpretation with radiology: I have reviewed the radiologist's reading. External Record Review External record reviewed: Inpatient record, Office record, Outpatient record, Prior outpatient labs, Prior outpatient radiology, Primary care record and Outsi de ED record Tests considered The following testing was considered but not selected: As above Prescription Management I considered prescription management with: Pain Medication and Antibiotic Chronic Conditions Patient?s care impacted by: Other Social Determinants Patient?s care significantly limited by Social Determinants of Health including: Other Social Determinant of Health Procedures Laceration Laceration 1: Site: hand Side (If applicable): left Size (cm): 1.5 Description: linear Depth: simple, single layer Local Anesthetic: lidocaine 1% Amount of anesthesia used (mL): 2 Pre-repair: wound explored Skin layer closed with: nylon Size (cm): 4-0 Number of sutures: 3 Technique: simple, interrupted Discharge Plan Discharge Clinical Impression: Hand laceration Patient Disposition: Home, Self-Care Instructions: Laceration (DC) Additional Instructions: Your wounds were repaired today in the emergency department. Keep dry and clean. You need to return to any emergency department, urgent care, or your PCPs office in 7-10 days for suture removal Apply bacitracin and or Neosporin daily Once sutures are removed apply anti scar cream like Mederma If area begins look infected, is red, there is drainage, streaking, or you have fever please return to the emergency department Prescriptions: New bacitracin 500 unit/gram ointment 1 appl topical BID Qty: 30 0RF No Action prednisone 20 mg tablet 40 mg PO DAILY Qty: 8 0RF Referrals: [facility] [Provider Group] [facility] [Outside] - 1 week (For suture removal) Po,Brittany Leung MD [Primary Care Provider] - 1 week (For suture removal) Discharge Date/Time: 09/19/24 16:46 Print Language: Latvian
[2024-09-19] MEDS: Lidocaine HCl 1 % MPF 5 ML VIAL INFILTRATI (16:41)
[2024-09-19 16:45] VITALS: BP 140/99; PULSE 114; RESP 16; TEMP 36.9; O2SAT 97
--- OUTSIDE RECORDS SUMMARY | 2024-09-19 18:38 | XMS_ITS | Clinical Summary ---
Author Organization [address] [place] [address] [place] [phone] Phone Care Team Providers Care Taker Away Name Role Phone Brittany Peña MD Primary Care Provider [phone] Social History Tobacco Use Types Packs/Day Years [...] Influencers of Health Screening 05/01/2022 COVID-19 Vaccine (2023-2 5 season) 2024 Influenza Vaccine (Season Ended) 2025 HIB Vaccines Aged Out No longer eligi [...] age to complete this topic Meningococcal B Vaccine Aged Out No l onger eligible based on patient's age to complete [...] on patient's age to complete this topic Insurance [facility] [place] [address] Care Teams Taker Away Relationship Specialty Start Date End Date Brittany Peña MD [address] [place] [address] [address] [facility] [place] [address] PCP - General Internal Medicine 01/26/17
== END 2024-09-19 16:46 | disposition home or self-care (01) ==
PROVIDERS: Emergency Provider Emergency Medicine; PCP Internal Medicine
DX: S61.412A Laceration without foreign body of left hand, initial encounter (principal); W25.XXXA Contact with sharp glass, initial encounter; Y93.9 Activity, unspecified; Y92.9 Unspecified place or not applicable; Y99.0 Civilian activity done for income or pay
CPT/HCPCS: 12001; 73130; 99282; 99284; J2003

== ENCOUNTER → 2024-09-19 14:43 | Outpatient (BNV) | payer OTHER, SELFPAY | PROVIDERS: PCP Internal Medicine; Visit Provider Radiology Diagnostic Radiology | DX: S61.412A Laceration without foreign body of left hand, initial encounter (principal) | CPT/HCPCS: 73130 ==

== ENCOUNTER 2025-02-26 08:21 | Outpatient (AMB) | payer OTHER, SELFPAY ==
[2025-02-26 08:26] VITALS: BP 130/78; PULSE 64; RESP 16; TEMP 36.7; O2SAT 96; BMI 31.4
--- NOTE | 2025-02-26 08:26 | MHC.OFFWIV ---
Intake Vital Signs 02/26/25 08:26 Height 5 ft 11 in Weight 225 lb BMI 31.4 BP 130/78 Blood Pressure Location Lt brachial Position Sitting Respiration 16 Pulse 64 Pulse Source Pulse Oximeter Temp 98.1 F Temp Source Oral Pulse Oximetry (%) 96 Oxygen Delivery Method Room Air Intake Visit Reasons: EP-lower rt back pain Patient Tobacco Use Status: Never used Tobacco Sales Data Analyst Required: No Information Interpreted: non-clinical & clinical Allergies naproxen Allergy (Mild, Verified 02/26/25 08:30) Hives tramadol (TRAMADOL) Allergy (Unknown, Verified 02/26/25 08:30) HEADACHE, NAUSEA, rash Medication List - Last Reconciled 02/26/25 by Gui Craven MD No Known Home Meds HPI EP-lower rt back pain HPI Details History of Present Illness The patient is a 44 year old male presenting with right lower back pain. Right lower back pain: - Sudden onset of pain in the right lower back area. - The pain began during the night/morning prior to the visit. - The patient denies any recent lifting activities and associates the pain with waking up. - The pain is severe and exhibits similar characteristics to prior experiences with kidney stones or kidney infections. - Previously, the patient had similar symptoms related to kidney stones and infections. - The recent pain has been ongoing for a couple of days, according to his mother who is here today - Previous episodes of kidney stones were treated with pain medication. - Patient has noted similar symptoms to previous kidney stones incidents. s. 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 - No recent heavy lifting activities reported. Problem List - Right flank back pain - History of kidney stones - History of kidney infection Patient Instructions - stat renal ultrasound ordered - Follow up with primary care and urologist as advised. - Complete urine test as directed. - Monitor pain levels and take prescribed medications as discussed. Percocet t.i.d. for 7 days 20 tablets - go to emergency room if symptoms worsen Review of Systems - General: No fever no chills - Neurological: No headaches no dizziness - Ear nose throat: No sore throat no hearing difficulty no ear pain - Cardiovascular: No syncope, no chest pain, no palpitations - Gastrointestinal: No nausea vomiting or diarrhea - Endocrine: No polyuria polydipsia no heat intolerance - Genitourinary: No dysuria , no blood in urine Physical Exam General: No acute distress HEENT: No acute findings Neck: Supple Respiratory system: Able to talk in full sentences, no audible wheeze Gastrointestinal: Pain in the right flank back Extremities: No swelling FUNERAL HOME DIRECTOR: Alert awake oriented x3 motor intact Skin: Normal turgor [facility] Medical History Right lumbar radiculopathy S/P extracorporeal shock wave therapy Renal stones Orchalgia Surgical History History of testicular surgery Previous back surgery Family History Father Hypertension Mother Hypertension Diabetes Maternal Uncle Lung cancer Social History Housing: Apartment Alcohol intake: never Patient Tobacco Use Status: Never used Tobacco e-Cigarette/Vaping Use: Never Used Second Hand Smoke Exposure: No service: No Current occupational status: employed 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 Current occupational exposures/hazards: No Cognitive needs: No Hearing needs: No Vision needs: No Physical Exam Vital Signs: Last Vital Signs Temp 98.1 F 02/26/25 08:26 Pulse 64 02/26/25 08:26 Resp 16 02/26/25 08:26 BP 130/78 02/26/25 08:26 Pulse Ox 96 02/26/25 08:26 Oxygen Delivery Method Room Air 02/26/25 08:26 BMI result Body Mass Index 31.4 Results AMB Urinalysis, Automated UA Leukoctes 0 Chinyere/uL Last Edit by Anabel Bojorquez MA on 02/26/25 11:06 UA Nitrite Negative Last Edit by Anabel Bojorquez MA on 02/26/25 11:06 UA Urobilinogen 0.2 mg/dL Last Edit by Anabel Bojorquez MA on 02/26/25 11:06 UA Protein 0 mg/dL Last Edit by Anabel Bojorquez MA on 02/26/25 11:06 UA pH 6.0 Last Edit by Anabel Bojorquez MA on 02/26/25 11:06 UA Blood 25 Nahum/uL Last Edit by Anabel Bojorquez MA on 02/26/25 11:06 1+ Anabel Bojorquez 02/26/25 11:06 UA Specific Lilly 1.020 Last Edit by Anabel Bojorquez MA on 02/26/25 11:06 UA Ketone Negative Last Edit by Anabel Bojorquez MA on 02/26/25 11:06 UA Bilirubin 0 mg/dL Last Edit by Anabel Bojorquez MA on 02/26/25 11:06 UA Glucose 0 mg/dL Last Edit by Anabel Bojorquez MA on 02/26/25 11:06 Results Reviewed Results Reviewed: Laboratory Last Values Urine pH (Auto) 6.0 02/26/25 10:59 Specific Lilly (Auto) 1.020 02/26/25 10:59 Urine Protein (Auto) 0 mg/dL 02/26/25 10:59 Glucose (UA)(Auto) 0 mg/dL 02/26/25 10:59 Urine Ketones (Auto) Negative 02/26/25 10:59 Urine Blood (Auto) 25 Nahum/uL H* 02/26/25 10:59 Urine Nitrite (Auto) Negative 02/26/25 10:59 Urine Bilirubin (Auto) 0 mg/dL 02/26/25 10:59 Urine Urobilinogen (Auto) 0.2 mg/dL 02/26/25 10:59 Leukocyte Esterase (Auto) 0 Chinyere/uL 02/26/25 10:59 Assessment & Plan Assessment & Plan (1) Flank pain, right side: Code(s): R10.9 - Unspecified abdominal pain (2) Renal stones: Comment: Right renal small stones 2021 Code(s): N20.0 - Calculus of kidney Plan History of Present Illness The patient is a 44 year old male presenting with right lower back pain. Right lower back pain: - Sudden onset of pain in the right lower back area. - The pain began during the night/morning prior to the visit. - The patient denies any recent lifting activities and associates the pain with waking up. - The pain is severe and exhibits similar characteristics to prior experiences with kidney stones or kidney infections. - Previously, the patient had similar symptoms related to kidney stones and infections. - The recent pain has been ongoing for a couple of days, according to his mother who is here today - Previous episodes of kidney stones were treated with pain medication. - Patient has noted similar symptoms to previous kidney stones incidents. s. 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 - No recent heavy lifting activities reported. Problem List - Right flank back pain - History of kidney stones - History of kidney infection Patient Instructions - stat renal ultrasound ordered - Follow up with primary care and urologist as advised. - Complete urine test as directed. - Monitor pain levels and take prescribed medications as discussed. Percocet t.i.d. for 7 days 20 tablets - go to emergency room if symptoms worsen Orders: Orders US renal RT Today N20.0 - Calculus of kidney, R10.9 - Unspecified abdominal pain AMB Urinalysis Automated Today Z13.9 - Encounter for screening, unspecified Medications: New oxycodone-acetaminophen 5-325 mg (Percocet) Partial Fill upon patient request. 1 tab PO TID PRN 20 tabs 0RF pain 7 days nitrofurantoin macrocrystal must administer with a meal/food 100 mg PO BID 6 caps 0RF 3 days Coding Level of Care Code Est Pt Level 4 (21403) Diagnoses Flank pain, right side R10.9 Renal stones N20.0
--- OUTSIDE RECORDS SUMMARY | 2025-02-26 08:53 | XMS_ITS | Clinical Summary ---
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 Name Role Phone Brittany Peña MD Primary Care Provider [phone] Social History Tobacco Use Types Packs/Day Years Used Date Smoking Tobacco: Never Assessed Sex and Gender Information Value Date Recorded Sex Assigned at Not on file Legal Sex Male 5:15 AM EST Gender Identity Not on file Sexual Orientation Not on file Plan of Treatment Health Maintenance Due Date Last Done Comments Colorectal Cancer Screening: Colonoscopy 1979 DTaP,Tdap,and Td Vaccines (1 - Tdap) 10/05/1998 Hepatitis B Vaccines (1 of 3 - 19+ 3-dose series) 10/05/1998 HPV Vaccines (1 - 3-dose SCD M series) 10/05/2006 Cholesterol Screening (Lipid Panel) 05/01/2022 HIV Screening 05/01/2022 Hepatitis C Screening 05/01/2022 Social Influencers of Health Screening 05/01/2022 Depression Screening 05/29/2024 COVID-19 Vaccine ( - 2023-2 5 season) 2025 Influenza Vaccine (#1) 2025 RSV Immunization Adult Patie nts (1 - 1-dose 75+ series) 10/05/2054 HIB Vaccines Aged Out No longer eligi [...] 5 Years) and At-Risk Patients (6 to 49 Years) Aged Out No longer eligible b ased on patient's age to complete this topic RSV Immunization Patients Un praveena 20 months Aged Out No longer eligible b ased on patient's age to complete this topic Varicella Vaccines Aged Out No longer eligible based on patient's age to complete this topic Insurance [facility] Care Teams Assembly Machine Operator Relationship Specialty Start Date End Date Brittany Peña MD [address] [place] [address] [address] [facility] [place], [place] [id number] PCP - General Internal Medicine 01/26/17
== END 2025-02-26 08:58 | disposition home or self-care (01) ==
PROVIDERS: PCP Internal Medicine; Visit Provider Internal Medicine
DX: R10.9 Unspecified abdominal pain (principal); N20.0 Calculus of kidney; Z13.9 Encounter for screening, unspecified

== ENCOUNTER → 2025-02-26 08:21 | Outpatient (BNVA) | payer OTHER, SELFPAY | PROVIDERS: PCP Internal Medicine; Visit Provider Internal Medicine | DX: N20.0 Calculus of kidney (principal); M54.50 Low back pain, unspecified; R10.9 Unspecified abdominal pain | CPT/HCPCS: 81003; 99212 ==

== ENCOUNTER 2025-02-26 14:58 | Outpatient (REF) | payer OTHER, SELFPAY ==
--- NOTE | ~2025-02-26 | US_ITS ---
EXAMINATION: US KIDNEY RIGHT HISTORY: N20.0 - Calculus of kidney TECHNIQUE: Real-time grayscale ultrasound imaging of the right kidney was performed and images were reviewed. COMPARISON: Comparison is made with the prior examination dated 01/03/2019. FINDINGS: The right kidney measures 12.9 x 5.4 x 6.2 cm. Renal parenchymal echotexture and thickness are normal. Multiple cysts are noted, the largest of which is at the upper pole measuring 2.4 x 2.4 x 2.4 cm. There is a also 1.3 x 1.1 x 1.3 cm interpolar cyst. There is no hydronephrosis or renal calculi. US/US renal RT IMPRESSION: Right renal cysts as described. Electronically signed by: Tunde Alvarado MD 02/26/2025 03:18 PM EDT
== END 2025-02-26 14:59 | disposition home or self-care (01) ==
LOC: HO.HMGCX 14:58
PROVIDERS: PCP Internal Medicine; Visit Provider Internal Medicine
DX: N20.0 Calculus of kidney (principal); R10.9 Unspecified abdominal pain
CPT/HCPCS: 76775

== ENCOUNTER → 2025-02-26 15:00 | Outpatient (BNV) | payer OTHER, SELFPAY | PROVIDERS: PCP Internal Medicine; Visit Provider Radiology Diagnostic Radiology | DX: N28.1 Cyst of kidney, acquired (principal) | CPT/HCPCS: 76775 ==

== ENCOUNTER 2025-03-14 12:10 | Outpatient (AMB) | payer OTHER, SELFPAY ==
--- NOTE | 2025-03-14 12:38 | A.OFFPC_ITS ---
Vital Signs 03/14/25 12:39 03/14/25 12:49 Height 5 ft 11 in Weight 223 lb 2 oz BMI 31.1 BP 150/90 H 130/80 Blood Pressure Location Lt brachial Lt brachial Position Sitting Sitting Pulse 113 H Pulse Source Pulse Oximeter Temp 97.3 F Temp Source Temporal Artery Scan Pulse Oximetry (%) 97 Oxygen Delivery Method Room Air Intake Visit Reasons: annual exam Intake Note: Patient is here today for a physical. Patient Care Secretary Required: No Data Librarian: Not Required per policy Accompanied by: Self / Same As Patient Allergies naproxen Allergy (Mild, Verified 03/14/25 12:38) Hives tramadol (TRAMADOL) Allergy (Unknown, Verified 03/14/25 12:38) HEADACHE, NAUSEA, rash Medication List - Last Reconciled 03/14/25 by Brittany Peña MD No Known Home Meds Tobacco use date assessed: 03/14/25 Dental Screening Dental Screen Date: 03/14/25 Did you have a dental visit in the last 12 months?: No Did you have a dental problem in the last 6 months where you did not have access to dental care?: No Was dental information given to patient?: No HPI annual exam HPI Details nausea , hearty burn states difficult urination just this month [facility] Medical History Right lumbar radiculopathy S/P extracorporeal shock wave therapy Renal stones Orchalgia Surgical History History of testicular surgery Previous back surgery Family History (Updated 03/14/25 @ 12:52 by Brittany Peña MD) Father Hypertension Mother Hypertension Diabetes Liver cancer Maternal Uncle Lung cancer Social History (Updated 03/14/25 @ 12:52 by Brittany Peña MD) Housing: Apartment Alcohol intake: never Patient Tobacco Use Status: Former Tobacco user Years Smoked: quit 21 years old e-Cigarette/Vaping Use: Never Used Second Hand Smoke Exposure: No service: No Current occupational status: employed 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 1. Little interest or pleasure in doing things: not at all 2. Feeling down, depressed, or hopeless: not at all 3. Trouble falling or staying asleep, or sleeping too much: several days 4. Feeling tired or having little energy: several days 5. Poor appetite or overeating: several days 6. Feeling bad about yourself - or that you are a failure or have let yourself or your family down: not at all 7. Trouble concentrating on things, such as reading the newspaper or watching television: not at all 8. Moving or speaking so slowly that other people could have noticed. Or the opposite - being so fidgety or restless that you have been moving around a lot more than usual: not at all 9. Thoughts that you would be better off or of hurting yourself in some way: not at all Total score: 3 Depression Screening Interpretation: Positive Depression Screening Done: Yes Source: Developed by Drs. Tunde Ragsdale, Leatha Curtis, Gautam Nunez and colleagues, with an educational harjit from [employer]. Thrive Questionnaire Date Thrive assessed: 03/12/25 I am a: Patient What is your living situation today?: I have a steady place to live Within the past 12 months, did the food you bought not last and you didn't have the money to get more?: Never true Within the past 12 months, did you worry whether your food would run out before you got money to buy more?: Never true Do you have trouble paying for medicines?: No Do you have trouble getting transportation to medical appointments?: No Do you have trouble paying your heating and electricity bill?: Yes Do you have trouble taking care of your child, family member or friend?: Yes Do you have trouble with day-to-day activities such as bathing, preparing meals, shopping, managing finances, etc.?: No Are you currently unemployed and looking for a job?: No Are you interested in more education?: No Please select the resources that you would like help with: Utilities and Care for elder or disabled Currently or been in a relationship where the following occur: No concerns reported THRIVE Score: 1 AUDIT C Alcohol Use Questionnaire (AUDIT-C) 1. How often do you have a drink containing alcohol?: Never 3. How often do you have six or more drinks on one occasion?: Never Total Score: 0 DANIEL-7 AMB Questionnaire DANIEL-7 Date DANIEL - 7 assessed: 03/14/25 Feeling nervous, anxious, or on edge: 0 = Not at all Not being able to stop or control worryin = Not at all Worrying too much about different things: 0 = Not at all Trouble relaxin = Not at all Being so restless that it is hard to sit still: 0 = Not at all Becoming easily annoyed or irritable: 0 = Not at all Feeling afraid as if something awful might happen: 0 = Not at all Total DANIEL-7 score (0-4 normal; 5-9 mild; 10-14 moderate; 15-21 severe): 0 Source: Developed by Drs. Tunde Ragsdale, Leatha Curtis, Gautam Nunez and colleagues, with an educational harjit from [employer]. Review of Systems Const Denies poor appetite and Denies weakness Eyes Denies no additional complaints ENT Reports Normal hearing present, Denies dizziness, Denies nasal congestion, Denies tinnitus and Denies sore throat Card Denies chest pain, Denies syncope, Denies rapid heart rate and Denies dyspnea Resp Denies cough and Denies dyspnea GI Denies change in stool character, Reports constipation, Denies diarrhea, Denies nausea and Denies vomiting Denies dysuria and Denies urinary frequency Neuro Reports Normal hearing present, Denies confusion, Denies dizziness, Denies syncope and Denies weakness Psych Denies confusion Physical exam (Primary Care) Vital Signs: Last Vital Signs Temp 97.3 F 03/14/25 12:39 Pulse 113 H 03/14/25 12:39 BP 130/80 03/14/25 12:49 Pulse Ox 97 03/14/25 12:39 Oxygen Delivery Method Room Air 03/14/25 12:39 BMI result Body Mass Index 31.1 Tobacco/Smoking Status: Tobacco use Status Tobacco use date assessed 03/14/25 03/14/25 12:45 Patient Tobacco Use Status Former Tobacco user 03/14/25 12:52 e-Cigarette/Vaping Use Never Used 03/14/25 12:52 PHQ-9: PHQ-9 Score PHQ-9: Total score 3 03/14/25 12:47 Depression Screening Interpretation: Positive Thrive Assessment: Date of Thrive Assessment Date Thrive assessed 03/12/25 03/14/25 12:45 Currently or been in a relationship where the following occur: No concerns reported Const General: No confusion Orientation/consciousness: No confusion HENMT Head: Yes normocephalic Ears: external ears normal and TM's normal bilaterally Face and sinus: Yes normal facial exam Mouth: moist mucous membranes Throat: Yes tonsils normal Eyes Conjunctivae: conjunctivae normal Pupils: Equal, round and reactive pupils present and Pupil accommodation reflex normal Direct Ophthalmoscopy: normal light reflex Neck Neck: No lymphadenopathy Thyroid: Thyroid normal Chest Chest palpation & inspection: normal inspection of the chest Resp Effort & Inspection: normal respiratory effort and no audible wheezes Auscultation: clear to auscultation bilaterally, no crackles, no wheezes and lung sounds not diminished Cardio Rate: regular rate Rhythm: regular rhythm Peripheral pulses: radial pulses present and dorsalis pedis present GI Palpation (GI): no masses Auscultation: normal bowel sounds and normoactive bowel sounds Rectal Exam - Male: Yes deferred Skin General skin exam: no rashes or lesions noted Rashes: no rashes Neuro General: No confusion Cranial nerves: Yes Equal, round and reactive pupils present and Yes Normal hearing present Cognition (Neuro): normal cognition Gait exam (Neuro): Normal gait present Motor exam (neuro): 5/5 motor strength present throughout Deep tendon reflexes (DTR's): Right brachioradialis reflex intensity grade: 2+, Left brachioradialis reflex intensity grade: 2+, Right patellar reflex intensity grade: 2+ and Left patellar reflex intensity grade: 2+ Extrem General: No edema Coding Level of Care Code Est Pt Prev Care 40-64y(81759) Diagnoses Annual physical exam Z00.00 Fracture of proximal phalanx of toe S92.919A Renal cyst, right N28.1 LFT elevation R79.89 Obesity (BMI 30-39.9) E66.9 Hematuria R31.9 Assessment & Plan Assessment & Plan (1) Annual physical exam: Code(s): Z00.00 - Encounter for general adult medical examination without abnormal findings Category: Medical Plan: Patient is advised to eat healthy, keep well hydrated, keep active and have adequate sleep. (2) Fracture of proximal phalanx of toe: Code(s): S92.919A - Unspecified fracture of unspecified toe(s), initial encounter for closed fracture Category: Medical Plan: Resolved (3) Renal cyst, right: Code(s): N28.1 - Cyst of kidney, acquired Category: Medical Plan: Continue to monitor (4) LFT elevation: Code(s): R79.89 - Other specified abnormal findings of blood chemistry Category: Medical Plan: Discussed about repeating blood work (5) Obesity (BMI 30-39.9): Code(s): E66.9 - Obesity, unspecified Category: Medical Plan: Diet and exercise (6) Hematuria: Code(s): R31.9 - Hematuria, unspecified Category: Medical Plan History of Present Illness The patient is a 44-year-old male presenting for a physical examination and evaluation of multiple ongoing health issues. The patient has a history of lumbar discopathy and nephrolithiasis, first noted in 2021. He reports ongoing back pain associated with these conditions. In February 2025, an ultrasound was performed due to flank pain, revealing renal cysts without evidence of calculi or hydronephrosis. The cysts are being monitored, and the patient reports persistent pain, although it is not attributed to the cysts. The patient experienced a laceration on his left hand in August, caused by cutting on broken glass at work, which required suturing. In July 2024, the patient visited urgent care for left foot bruising after hitting it on a washing machine, resulting in a nondisplaced oblique fracture of the proximal phalanx of the great toe. In February 2024, the patient had an ER visit for left ankle pain, with imaging showing degenerative changes without fracture. The patient reports a history of elevated blood glucose and liver function t ests, with a blood sugar level of 402 noted previously. He has been advised to monitor these levels closely. The patient has a history of obesity and has lost approximately 20 pounds recently. He reports experiencing heartburn twice a month, typically triggered by spicy foods. The patient reports urinary symptoms including hesitancy, nocturia, and hematuria, with a recent urine test showing blood. An ultrasound of the bladder has been ordered to investigate these symptoms further. Health Maintenance - Blood work monitoring for glucose and liver function tests - Weight management through diet and exercise - Discussion of eye examination scheduling - Vaccination status reviewed, tetanus up to date Social History - Employment: Sustained a hand laceration at work - Substance Use: Former smoker, quit in 2021 - Exercise: Reports weight loss of 20 pounds Review of Systems - General: Denies fever, dizziness, or nausea - Cardiovascular: Denies chest pain or syncope - Respiratory: Denies dyspnea or cough - Gastrointestinal: Reports heartburn twice a month, denies difficulty swallowing - Genitourinary: Reports urinary hesitancy, nocturia, and hematuria - Musculoskeletal: Reports back pain, denies joint swelling - Neurological: Denies headaches or balance issues Physical Exam General: Cooperative, healthy appearing, comfortable, no acute distress and well developed Orientation: Patient oriented x3 Limitations: No limitations Head: Normal to inspection Ears: Hearing grossly normal bilaterally Nose: Normal external nose present Face and sinus: Normal facial exam Eyes: Appearance normal, both eyes and all related structures Neck: Normal visual inspection and Yes full ROM Respiratory: Normal respiratory effort and able to speak in complete sentences. Clear to auscultation bilaterally Cardiovascular: Regular rate and rhythm. Normal S1 and S2 GI: Normal to inspection. Soft to palpation and nontender Skin: No rashes or lesions noted Neuro: Patient oriented x3 Extremities: Normal to inspection Results - Ultrasound (February 2025): Renal cysts, no calculi or hydronephrosis - Blood glucose: 402 mg/dL - Liver function tests: Elevated - Urinalysis: Hematuria Plan Patient was informed and verbally consented to the use of an ambient scribe for clinic note documentation during this visit. 1. Lumbar Discopathy The patient has a history of lumbar discopathy, which continues to cause back pain. Management includes monitoring symptoms and considering physical therapy if pain persists. 2. Nephrolithiasis The patient has a history of nephrolithiasis, but recent imaging shows no current stones. Continued monitoring and hydration are recommended to prevent recurrence. 3. Renal Cysts Renal cysts were identified on ultrasound, and they are being monitored for changes. The cysts are not currently causing pain, and no intervention is needed at this time. 4. Laceration Of The Left Hand The patient sustained a laceration on the left hand, which was sutured and has healed without complications. 5. Fracture Of The Proximal Phalanx Of The Left Great Toe The patient experienced a nondisplaced fracture of the left great toe, which is being managed conservatively. 6. Degenerative Changes In The Left Ankle Degenerative changes in the left ankle were noted, and symptomatic management is advised. 7. Elevated Blood Glucose The patient has a history of elevated blood glucose, with a previous reading of 402 mg/dL. Dietary modifications and regular monitoring are recommended to manage glucose levels. 8. Elevated Liver Function Tests Elevated liver function tests have been noted, and further monitoring is advised to assess liver health. 9. Obesity The patient is managing obesity with recent weight loss of 20 pounds through diet and exercise. 10. Heartburn The patient experiences heartburn twice a month, often triggered by spicy foods. Dietary adjustments are recommended to reduce symptoms. 11. Hematuria The patient reports hematuria, and an ultrasound of the bladder has been ordered to investigate further. 12. Urinary Hesitancy The patient reports urinary hesitancy, and further evaluation is planned to determine the underlying cause. 13. Nocturia The patient experiences nocturia, waking up five times at night to urinate. Further investigation is needed to address this symptom. Discussion Notes During the visit, we discussed the patient's ongoing health issues, including lumbar discopathy, nephrolithiasis, and renal cysts. We reviewed the need for continued monitoring of blood glucose and liver function tests, as well as the importance of dietary modifications to manage these conditions. The patient was informed about the plan to conduct an ultrasound of the bladder to investigate urinary symptoms further. We also discussed the patient's recent weight loss and the role of diet and exercise in managing obesity. Patient Instructions - Continue monitoring blood glucose and liver function tests regularly. - Maintain a healthy diet and exercise routine to manage weight and reduce heartburn symptoms. - Schedule an eye examination as discussed. - Follow up with the ultrasound of the bladder as ordered. Orders: Orders Comprehensive Met. Panel Today R73.09 - Other abnormal glucose Free T4 (Free Thyroxine) Today R73.09 - Other abnormal glucose Thyroid Stimulating Hormone Today R73.09 - Other abnormal glucose Vitamin B12 and Folate Today R73.09 - Other abnormal glucose CT abdomen pelvis wo IV con Today R31.9 - Hematuria, unspecified Complete Blood Count Auto Diff Today R73.09 - Other abnormal glucose Hemoglobin A1c Today R73.09 - Other abnormal glucose
[2025-03-14 12:39] VITALS: BP 150/90; PULSE 113; TEMP 36.3; O2SAT 97; BMI 31.1
[2025-03-14 12:49] VITALS: BP 130/80
--- OUTSIDE RECORDS SUMMARY | 2025-03-14 14:48 | XMS_ITS | Clinical Summary ---
Author Organization [address] [place] [address] [place] [id number] Phone Care Team Providers Care Water Softener Installer Name Role Phone Brittany Peña MD Primary Care Provider [phone] Social History Tobacco Use Types Packs/Day Years [...] patient's age to complete this topic Insurance [employer] Care Teams Water Softener Installer Relationship Specialty Start Date End Date Brittany Peña MD [address] [place] [address] [address] [facility] [place], [place] [id number] PCP - General Internal Medicine 01/26/17
== END 2025-03-14 13:08 | disposition home or self-care (01) ==
LOC: HO.HMCH 12:11
PROVIDERS: PCP Internal Medicine; Visit Provider Internal Medicine
DX: Z00.00 Encounter for general adult medical examination without abnormal findings (principal); S92.912A Unspecified fracture of left toe(s), initial encounter for closed fracture; E66.9 Obesity, unspecified; Z68.31 Body mass index [BMI] 31.0-31.9, adult; N28.1 Cyst of kidney, acquired; R79.89 Other specified abnormal findings of blood chemistry; R31.9 Hematuria, unspecified

== ENCOUNTER → 2025-03-14 12:10 | Outpatient (BNVA) | payer OTHER, SELFPAY | PROVIDERS: PCP Internal Medicine; Visit Provider Internal Medicine | DX: Z00.00 Encounter for general adult medical examination without abnormal findings (principal); N28.1 Cyst of kidney, acquired; R79.89 Other specified abnormal findings of blood chemistry; E66.9 Obesity, unspecified; R31.9 Hematuria, unspecified; R12 Heartburn; R39.11 Hesitancy of micturition; Z87.442 Personal history of urinary calculi; Z87.81 Personal history of (healed) traumatic fracture; R73.09 Other abnormal glucose | CPT/HCPCS: 99396 ==

== ENCOUNTER 2025-04-02 15:02 | Outpatient (AMB) | payer OTHER, SELFPAY ==
[2025-04-02 15:06] VITALS: BP 148/88; PULSE 106; TEMP 36.7; O2SAT 97; BMI 31.2
--- NOTE | 2025-04-02 15:06 | MHC.OFFWIV ---
Intake Vital Signs 04/02/25 15:06 Height 5 ft 11 in Weight 224 lb BMI 31.2 BP 148/88 H Blood Pressure Location Rt brachial Position Sitting Pulse 106 H Pulse Source Pulse Oximeter Temp 98.0 F Temp Source Oral Pulse Oximetry (%) 97 Oxygen Delivery Method Room Air Intake Visit Reasons: EP Stomach/groin pain Intake Note: pt presents with pain to RLQ radiating into right groin, blood in urine and right flank pain Patient Tobacco Use Status: Former Tobacco user Allergies naproxen Allergy (Mild, Verified 04/02/25 15:13) Hives tramadol (TRAMADOL) Allergy (Unknown, Verified 04/02/25 15:13) HEADACHE, NAUSEA, rash Do you need a note to return to daycare/school/sports/work: No HPI HPI Comments History of Present Illness Details History of Present Illness - The patient is a 44-year-old male presenting with hematuria and severe abdominal pain. - He states that he woke up today with sharp pain in the right abd and flank and vomiting. - Hematuria was initially detected last month, with blood present in the urine but no kidney stones. - The patient reports severe sharp pain in the RLQ and flank leading to episodes of vomiting and inability to sleep due to discomfort. - The patient has been experiencing pain radiating from the right flank to the groin, with episodes of pure blood in the urine with clots. - A renal ultrasound was conducted on February 26, showing no kidney stones, and a CT scan is scheduled for April. - The patient was prescribed macrobid and oxycodone previously, with concerns about a possible urinary tract infection. - He took his last oxycodone on Monday. - He continues to have pain, nausea, and blood in the urine. - He denies fever, chills, pain with urination, CP, or SOB. Physical Exam General: Cooperative, healthy appearing, uncomfortable, no acute distress and well developed Orientation: Patient oriented x3 Limitations: No limitations Respiratory: Normal respiratory effort and able to speak in complete sentences. Clear to auscultation bilaterally. No w/r/r noted. Cardiovascular: Regular rate and rhythm. Normal S1 and S2. No m/r/g noted. GI: Hypoactive BS noted. Soft, tender to palpation in the RLQ and flank. +guarding noted. Unable to perform rebound tenderness, Rov[place], or [place] due to pain. +CVA tenderness on the right. Skin: No rashes or lesions noted. Patient was informed and verbally consented to the use of an ambient scribe for clinic note documentation during this visit. [facility] Medical History Right lumbar radiculopathy S/P extracorporeal shock wave therapy Renal stones Orchalgia Surgical History History of testicular surgery Previous back surgery Family History (Updated 03/14/25 @ 12:52 by Brtitany Peña MD) Father Hypertension Mother Hypertension Diabetes Liver cancer Maternal Uncle Lung cancer Social History (Updated 03/14/25 @ 12:52 by Brittany Peña MD) Housing: Apartment Alcohol intake: never Patient Tobacco Use Status: Former Tobacco user Years Smoked: quit 21 years old e-Cigarette/Vaping Use: Never Used Second Hand Smoke Exposure: No service: No Current occupational status: employed 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 Current occupational exposures/hazards: No Cognitive needs: No Hearing needs: No Vision needs: No Review of Systems Const All systems reviewed & are unremarkable except as noted in HPI and below Physical Exam Vital Signs: Last Vital Signs Temp 98.0 F 04/02/25 15:06 Pulse 106 H 04/02/25 15:06 BP 148/88 H 04/02/25 15:06 Pulse Ox 97 04/02/25 15:06 Oxygen Delivery Method Room Air 04/02/25 15:06 BMI result Body Mass Index 31.2 Results AMB Urinalysis, Automated UA Leukoctes 0 [place]/uL Last Edit by Antonette Hein CMA on 04/02/25 15:48 UA Nitrite Negative Last Edit by Antonette Hein CMA on 04/02/25 15:48 UA Urobilinogen 0.2 mg/dL Last Edit by Antonette Hein CMA on 04/02/25 15:48 UA Protein 0 mg/dL Last Edit by Antonette Hein CMA on 04/02/25 15:48 UA pH 6.0 Last Edit by Antonette Hein CMA on 04/02/25 15:48 UA Blood 200 [place]um/uL Last Edit by Antonette Hien CMA on 04/02/25 15:48 UA Specific [place] 1.025 Last Edit by Antonette Hein CMA on 04/02/25 15:48 UA Ketone Negative Last Edit by Antonette Hein CMA on 04/02/25 15:48 UA Bilirubin 0 mg/dL Last Edit by Antonette Hein CMA on 04/02/25 15:48 UA Glucose 0 mg/dL Last Edit by Antonette Hein CMA on 04/02/25 15:48 Assessment & Plan Assessment & Plan (1) Hematuria: Code(s): R31.9 - Hematuria, unspecified Qualifiers: Hematuria type: gross Qualified Code(s): R31.0 - Gross hematuria (2) Abdominal pain: Code(s): R10.9 - Unspecified abdominal pain Qualifiers: Abdominal location: right lower quadrant Qualified Code(s): R10.31 - Right lower quadrant pain Plan Most likely kidney stone vs UTI UA 3+ blood plan - Due to the amt of pain the patient was in in the office today, will send the patient to the ER for an evaluation - pt is agreeable and will drive himself - will call in an expect to the ER Orders: Orders Urine Culture Today N39.0 - Urinary tract infection, site not specified AMB Urinalysis Automated Today Z13.9 - Encounter for screening, unspecified Coding Level of Care Code Est Pt Level 3 (21699) Diagnoses Gross hematuria R31.0 Hematuria type: gross Right lower quadrant abdominal pain R10.31 Abdominal location: right lower quadrant
--- OUTSIDE RECORDS SUMMARY | 2025-04-02 18:05 | XMS_ITS | Clinical Summary ---
Author Organization [address] [place] [address] [place] [id number] Phone Care Team Providers Care Police Chief Name Role Phone Brittany Peña MD Primary Care Provider [phone] Social History Tobacco Use Types Packs/Day Years [...] patient's age to complete this topic Insurance [employer] Care Teams Police Chief Relationship Specialty Start Date End Date Brittany Peña MD [address] [place] [address] [address] [facility] [place], [place] [id number] PCP - General Internal Medicine 01/26/17
== END 2025-04-02 16:22 | disposition home or self-care (01) ==
PROVIDERS: PCP Internal Medicine; Visit Provider Physician Assistant Medical
DX: R31.0 Gross hematuria (principal); R10.31 Right lower quadrant pain; Z13.9 Encounter for screening, unspecified

== ENCOUNTER 2025-04-02 15:02 | Outpatient (REF) | payer OTHER, SELFPAY | END 2025-04-02 15:03 | disposition home or self-care (01) | LOC: HO.LAB 15:02 | PROVIDERS: PCP Internal Medicine; Visit Provider Physician Assistant Medical | DX: R10.31 Right lower quadrant pain (principal); R31.0 Gross hematuria; Z13.89 Encounter for screening for other disorder | CPT/HCPCS: 81003; 87086; 99212 ==

== ENCOUNTER 2025-04-02 16:01 | Emergency (ER) | payer OTHER, SELFPAY ==
--- NOTE | ~2025-04-02 | CT_ITS ---
CLINICAL HISTORY: Right flank pain, hematuria, kidney stones CT abdomen and pelvis without contrast Comparison: CT/REG/SR - CT ABDOMEN PELVIS WITHOUT IV CONTRAST - 05/04/22 11:22 EST Findings: The lung bases are clear. Similar asymmetric heterogeneous enlarged right kidney with likely innumerable clustered hypodense renal cysts throughout the upper and midpole kidney, grossly similar to prior. Parenchymal calcification right upper pole kidney. If clinical concern persists consider follow-up MRI. Nonobstructive 2 mm calculus right lower pole kidney. Similar small left-sided hypodense renal cysts. No hydronephrosis. No bowel obstruction, pneumoperitoneum, or pneumatosis. Mild circumferential bladder wall thickening with submucosal fatty deposition can be seen with chronic cystitis Scattered colonic diverticulosis without diverticulitis or colitis. Normal appendix. Fat containing inguinal hernias. Osteopenia with diffuse multilevel spondylosis. Interbody fusion with disc spacer noted at L5-S1. Transitional lumbosacral anatomy. IMPRESSION: 1. Nonobstructive 2 mm calculus right lower pole kidney. 2. Additional findings as described. This document has been electronically signed by: Maurizio López MD on 04/02/2025 19:53:26
[2025-04-02 16:14] VITALS: BP 180/85; PULSE 90; RESP 18; TEMP 36.7; O2SAT 98; BMI 31.1
--- NOTE | 2025-04-02 16:15 | ED.GENADULT ---
HPI - General Adult General Chief complaint: Urogenital-Male Stated complaint: Stomach Pain Time Seen by Provider: 04/02/25 18:58 Source: patient Mode of arrival: ambulatory Limitations: no limitations History of Present Illness ED Provider: Dr. Garcia HPI narrative: 44-year-old male history of kidney stones in the past presents to ER today for evaluation of right-sided flank pain. This has been going to on and off for the past 2 months. It has been worsening. Patient is stated that radiates from his right flank down to his right groin area. Denies any nausea or vomiting. He has been complaining of hematuria which is abnormal for him. Related Data Previous Rx's ?Medication ?Instructions ?Recorded cyclobenzaprine 5 mg tablet 5 mg PO TID PRN muscle spasm 4 04/02/25 days #14 tabs ondansetron 4 mg disintegrating 4 mg PO Q8H PRN nausea and 04/02/25 tablet vomiting #14 tabs phenazopyridine 200 mg tablet 200 mg PO TID PRN pain 4 days #14 04/02/25 (Pyridium) tabs prednisone 20 mg tablet 20 mg PO DAILY 7 days #7 tabs 04/02/25 Allergies Allergy/AdvReac Type Severity Reaction Status Date / Time naproxen Allergy Mild Hives Verified 04/02/25 16:15 tramadol (TRAMADOL) Allergy Unknown HEADACHE, Verified 04/02/25 16:15 NAUSEA, rash Review of Systems Review of Systems: Pertinent review of systems as mentioned in HPI. All other system otherwise negative. [facility] Past Medical History [facility] Narrative: Hematuria Medical History Right lumbar radiculopathy S/P extracorporeal shock wave therapy Renal stones Orchalgia Surgical History History of testicular surgery Previous back surgery Family History Family History (Updated 03/14/25 @ 12:52 by Brittany Peña MD) Father Hypertension Mother Hypertension Diabetes Liver cancer Maternal Uncle Lung cancer Social History Social History (Updated 03/14/25 @ 12:52 by Brittany Peña MD) Housing: Apartment Alcohol intake: never Patient Tobacco Use Status: Former Tobacco user Years Smoked: quit 21 years old e-Cigarette/Vaping Use: Never Used Second Hand Smoke Exposure: No Advance Directives: No Advance Directives Information Provided: No Do you have a plan to hurt others: No Plan service: No Current occupational status: employed 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 No sign of incarcerated hernia on exam. No sign of hernia in the scrotum. Neurological: Awake and alert, no facial droop noted Skin: Warm and dry Psychiatric: Appropriate mood and thoughts Vital Signs: Vital Signs - 24 hr 04/02/25 16:14 04/02/25 19:13 04/02/25 20:44 Temperature 98.1 F 0 F L Pulse Rate 90 74 74 Respiratory Rate 18 18 18 Blood Pressure 180/85 H 142/80 H 142/80 H Pulse Oximetry 98 95 95 Oxygen Delivery Method Room Air Room Air Room Air BMI result Body Mass Index 31.1 Course Course Course Narrative: RME: 44-year-old male presents to ED for right flank pain with hematuria that began this morning. Patient has history of kidney stones. Patient is sent from urgent care. Labs ordered Medications Administered Discontinued Medications Generic Name Dose Route Start Last Admin Trade Name Nandoq PRN Reason Stop Dose Admin Sodium Chloride 1,000 mls @ 999 mls/hr 04/02/25 19:45 04/02/25 20:43 Ns IV 04/02/25 20:45 Infused .Q1H1M JUSTINA Infusion Acetaminophen 1,000 mg in 100 mls @ 400 mls/hr 04/02/25 19:42 04/02/25 20:42 Ofirmev IV 04/02/25 19:56 Infused ONCE ONE Infusion Ondansetron HCl 4 mg 04/02/25 19:41 04/02/25 19:53 Ondansetron Hcl 4 Mg/2 Ml Vial IVPUSH 04/02/25 19:42 4 mg ONCE ONE Administration Tamsulosin HCl 0.4 mg 04/02/25 19:41 04/02/25 19:53 Tamsulosin Hcl 0.4 Mg Capsule PO 04/02/25 19:42 0.4 mg ONCE ONE Administration Medical Decision Making Medical Decision Making [facility] Narrative: 44-year-old male presented hospital today for evaluation of right flank pain. Patient's CT imaging did not show any signs of nephrolithiasis. He has a nonobstructive 2 mm calculus of the right lower pole the kidneys. However he also has signs of cystitis in his bladder. Lab work did show slight leukocytosis 11.5. No sign of significant anemia. Hemoglobin 17.3. No sign of infection on the UA. We will plan to discharge patient with some Pyridium intake. We will give him follow up with the Urology team. Patient will be discharged Differential Diagnosis Differential Diagnoses: The differential diagnosis associated with the presentation includes Nephrolithiasis, cystitis, renal cysts, probably kidney disease, renal cancer Lab Data [facility] Lab Attestation statement: I reviewed the patient's lab results. 04/02/25 18:04 04/02/25 18:04 Labs: Lab Results 04/02/25 04/02/25 Range/Units 18:04 19:13 WBC 11.5 H (4.8-10.8) X10*3/uL RBC 5.76 (4.60-5.80) X10*6/uL Hgb 17.3 (14.0-18.0) g/dl Hct 49.8 (42.0-52.0) % MCV 86.5 (80.0-98.0) fL MCH 30.0 (27.0-33.0) pg MCHC 34.7 (31.0-36.0) g/dl RDW 12.3 (11.0-16.0) % Plt Count 230 (160-400) X10*3/uL MPV 9.6 (9.4-12.4) fL Immature Gran % (Auto) 0.3 (0.0-0.4) % Neut % (Auto) 65.1 (45-73) % Lymph % (Auto) 25.6 (20-40) % [place] % (Auto) 6.6 (2-11) % Eos % (Auto) 2.0 (0-4) % Baso % (Auto) 0.4 (0-2) % Lymph # (Auto) 3.0 (1.2-4.9) X10*3/uL [place] # (Auto) 0.8 (0.1-1.2) X10*3/uL Eos # (Auto) 0.2 (0.0-0.4) X10*3/uL Baso # (Auto) 0.1 (0.0-0.2) X10*3/uL Abs Immat Gran (auto) 0.03 (0.00-0.03) X10*3/uL Absolute Neuts (auto) 7.5 (2.0-8.3) x10*3/uL Absolute Nucleated RBC 0.000 (0.0-0.012) X10*3/uL Nucleated RBC % (auto) 0.0 (0.0-0.2) /100WBC Sodium 144 (135-145) mmol/L Potassium 4.1 (3.3-5.1) mmol/L Chloride 107 (96-108) mmol/L Carbon Dioxide 29 (22-29) mmol/L Anion Gap 12 (12-20) BUN 9 (9-16) mg/dL Creatinine 1.17 (0.5-1.4) mg/dL Estim Creat Clear Calc 96.5 Estimated GFR > 60 Random Glucose 95 (60-115) mg/dL Calcium 9.8 (8.4-10.2) mg/dL Total Bilirubin 0.4 (0.0-1.0) mg/dL AST 28 (5-37) U/L ALT 42 H (0-40) U/L Alkaline Phosphatase 69 (39-117) U/L Total Protein 7.3 (6.5-8.0) g/dL Albumin 4.6 (3.5-5.0) g/dL Urine Color Dark Yellow Urine Appearance Clear Urine pH 5.5 (5.0-9.0) Ur Specific [place] >= 1.030 H (1.005-1.025) Urine Protein Trace (Neg-Trace) mg/dL Urine Glucose (UA) Negative (Negative) mg/dL Urine Ketones Negative (Negative) mg/dL Urine Blood Moderate (2+) H (Negative) Urine Nitrite Negative (Negative) Ur Leukocyte Esterase Negative (Negative) Urine RBC 11-20 H (0-2) /HPF Urine WBC 0-5 (0-5) /HPF Ur Squamous Epith Cells 0-2 (0-2) /HPF Urine Bacteria None Seen (None Seen) Hyaline Casts 0-2 (0-2) /LPF Independent Interpretation I performed an independent interpretation of an: CT Scan Radiology Impression Discussion of test interpretation with radiology: I have reviewed the radiologist's reading. Discharge Plan Discharge Clinical Impression: Cystitis Hematuria Qualifiers: Hematuria type: gross Qualified Code(s): R31.0 - Gross hematuria Patient Disposition: Home, Self-Care Prescriptions: New phenazopyridine [Pyridium] 200 mg tablet 200 mg PO TID PRN (Reason: pain) 4 Days Qty: 14 0RF cyclobenzaprine 5 mg tablet 5 mg PO TID PRN (Reason: muscle spasm) 4 Days Qty: 14 0RF ondansetron 4 mg tablet,disintegrating 4 mg PO Q8H PRN (Reason: nausea and vomiting) Qty: 14 0RF prednisone 20 mg tablet 20 mg PO DAILY 7 Days Qty: 7 0RF Referrals: [facility] [Provider Group, Urology] Referral Note: Hematuria, Renal cysts Clinical Impression: Cystitis Interventions: ED Discharge Assessment Last Done: 04/02/25 20:44 Discharge Date/Time: 04/02/25 20:45 Print Language: Chadian
[2025-04-02 18:29] LABS: MANUAL DIFF FLAG NO
[2025-04-02 18:44] LABS: Hematocrit 49.8 % (42.0-52.0); Hemoglobin 17.3 g/dl (14.0-18.0); Imm Gran Abs Auto 0.03 X10*3/uL (0.00-0.03); Imm Gran Pct Auto 0.3 % (0.0-0.4); Lymphocytes Absolute Auto 3.0 X10*3/uL (1.2-4.9); Mean Corpuscular HGB Conc 34.7 g/dl (31.0-36.0); Mean Corpuscular Hemoglobin 30.0 pg (27.0-33.0); Mean Corpuscular Volume 86.5 fL (80.0-98.0); NRBC Abs Auto 0.000 X10*3/uL (0.0-0.012); NRBC Pct Auto 0.0 /100WBC (0.0-0.2); Platelet Count 230 X10*3/uL (160-400); Red Blood Count 5.76 X10*6/uL (4.60-5.80); White Blood Count 11.5 X10*3/uL (4.8-10.8)
[2025-04-02 18:45] LABS: Alanine Aminotransferase 42 U/L (0-40); Albumin Level 4.6 g/dL (3.5-5.0); Alkaline Phosphatase 69 U/L (39-117); Anion Gap 12 (12-20); Aspartate Amino Transferase 28 U/L (5-37); Blood Urea Nitrogen 9 mg/dL (9-16); Calcium 9.8 mg/dL (8.4-10.2); Carbon Dioxide 29 mmol/L (22-29); Chloride 107 mmol/L (96-108); Creatinine Clr Calc Pharmacy 96.5; Estimated Glomerular Filt Rate > 60; Potassium 4.1 mmol/L (3.3-5.1); Sodium 144 mmol/L (135-145); Total Protein 7.3 g/dL (6.5-8.0)
[2025-04-02 19:13] VITALS: BP 142/80; PULSE 74; RESP 18; O2SAT 95
[2025-04-02 19:27] LABS: Appearance Urine Clear; Glucose Urine UA Negative (Negative); PH 5.5 (5.0-9.0); Specific Gravity - Urine >= 1.030 (1.005-1.025); UMIC TRIGGER UACC YES
[2025-04-02 20:44] VITALS: BP 142/80; PULSE 74; RESP 18; TEMP -17.7; TEMP 0; O2SAT 95
== END 2025-04-02 20:45 | disposition home or self-care (01) ==
PROVIDERS: Physician Assistant; Emergency Provider Student in an Organized Health Care Education/Training Program
DX: N30.91 Cystitis, unspecified with hematuria (principal); N20.0 Calculus of kidney; Z87.891 Personal history of nicotine dependence
CPT/HCPCS: 36415; 74176; 80053; 81001; 85025; 96361; 96374; 99284; J0131; J2405

== ENCOUNTER → 2025-04-02 18:19 | Outpatient (BNV) | payer OTHER, SELFPAY | PROVIDERS: Emergency Provider Student in an Organized Health Care Education/Training Program; Visit Provider Radiology Diagnostic Radiology | DX: N20.0 Calculus of kidney (principal) | CPT/HCPCS: 74176 ==